=== PATIENT | female | born 1955 | race Caucasian/White ===

== ENCOUNTER 2016-09-23 08:29 | Inpatient (IN) | payer MEDICARE ==
[2016-09-23 09:42] LABS: Hematocrit 44 % (35-47); Mean Corpuscular HGB Conc 34 g/dl (31-36); Mean Corpuscular Hemoglobin 32 pg (27-31); Mean Corpuscular Volume 95 fL (80-97); Mean Platelet Volume 8 um3 (7.4-10.4); Red Blood Count 4.62 10^6/ul (4.0-5.4); Red Cell Distribution Width 13 % (10.5-15); White Blood Count 8.2 10^3/ul (3.5-10.8)
--- NOTE | 2016-09-23 09:46 | RAD ---
INDICATION: Ataxia. COMPARISON: There are no prior studies available for comparison. TECHNIQUE: Contiguous axial sections of the brain were obtained from the skull base to the vertex without contrast. FINDINGS: The ventricles, cisterns and sulci are enlarged consistent with diffuse atrophy. There are multiple focal areas of decreased density in the subcortical and periventricular white matter suggestive of moderate chronic small vessel ischemic changes. There is no evidence for hemorrhage. No significant focal osseous abnormality is seen. There is mild mucosal thickening within the left maxillary sinus. The visualized portion of the paranasal sinuses and mastoid air cells otherwise appear clear. IMPRESSION: 1. NO EVIDENCE FOR GROSS ACUTE INFARCT, MASS EFFECT OR HEMORRHAGE. 2. ATROPHY AND FINDINGS CONSISTENT WITH CHRONIC SMALL VESSEL ISCHEMIC CHANGES.
--- NOTE | 2016-09-23 09:55 | RAD ---
INDICATION: Weakness, ataxia. COMPARISON: None. TECHNIQUE: Multidetector CT images foramen magnum to lung apices without contrast. Multiplanar reformation. REPORT: Calcific plaque at the carotid bifurcations. Negative for paravertebral hematoma or lymphadenopathy within the [id number]. Negative for cervical spine fracture or subluxation. C4-C5: Mild disc space narrowing and vertebral endplate osteophytosis. Negative for central canal stenosis or foraminal stenosis. C5-C6: Severe disc space narrowing. Mild dorsal osteophyte disc complex without resulting central canal stenosis. Uncinate process spurring and facet joint osteoarthritis results in mild bilateral foraminal stenosis. IMPRESSION: 1. No evidence for traumatic injury of the cervical spine. 2. Uncinate process spurring and facet joint osteoarthritis results in mild bilateral foraminal stenosis at C5-C6. 3. Atherosclerotic plaque at the carotid bifurcations. Correlate with clinical assessment and consider ultrasound for further evaluation.
--- NOTE | 2016-09-23 09:56 | RAD ---
Indication: Right leg weakness. CT of the lumbar spine was obtained in the axial plane. Sagittal and coronal reconstructed images were obtained. The vertebral bodies appear normal in height. Normal bone marrow signal is noted. At L5-S1 there is no disc protrusion present. No central or foraminal stenosis is noted. A Schmorl's node is noted in the superior endplate of L5. At L4-L5 there is Broad-based protrusion which flattens the thecal sac. No central or foraminal stenosis is noted. At L3-L4, L2-L3, L1-L2 and T12-L1 no disc protrusion is identified. The spinal canal appears to be intact. Some scarring is noted in the right costophrenic angle of the lung lovelace. No retroperitoneal adenopathy is noted. Atherosclerotic aorta is noted. IMPRESSION: AT L4-L5 BROAD-BASED PROTRUSION FLATTENS THE THECAL SAC WITH NO CENTRAL OR FORAMINAL STENOSIS. A SCHMORL'S NODE IS NOTED IN THE SUPERIOR ENDPLATE OF L5. SPONDYLITIC RIDGE IS NOTED AT L5-S1. NO CENTRAL OR FORAMINAL STENOSIS IS NOTED. NO FRACTURE OF THE LUMBAR SPINE IS NOTED.
[2016-09-23 10:01] LABS: Albumin 4.2 g/dL (3.2-5.2); BUN/Creatinine Ratio 22.8 (8-20); Calcium 9.4 mg/dL (8.6-10.3); EGFR African American 94.5 (>60); EGFR Non-African American 73.5 (>60); Globulin 3.2 g/dL (2-4); Potassium 3.5 mmol/L (3.5-5.0); Total Bilirubin 0.6 mg/dL (0.2-1.0); Total Protein 7.4 g/dL (6.4-8.9)
--- NOTE | 2016-09-23 11:54 | RAD ---
Indication: Leg weakness. Image sequences: Sagittal T1, T2, STIR, axial T1 and T2-weighted images of the lumbar spine were obtained. The vertebral bodies appear normal in height. Normal bone marrow signal is noted. At L5-S1 the disc is preserved in height and signal. No focal protrusion is identified. At L4-L5 disc desiccation with mild facet arthropathy is noted. No central or foraminal stenosis is noted. At L1-L2, L2-L3 and L3-L4 the disc space is normal. IMPRESSION: DISC DESICCATION AT L4-L5. NO FOCAL PROTRUSION IS NOTED AT ANY OF THE LUMBAR SPINE LEVELS.
[2016-09-23] MEDS ORDERED: Aspirin TAB* 325 MG PO ONE (13:26)
[2016-09-23] MEDS: Aspirin EC Low Dose* 81 MG TAB.EC PO SCH (15:31)
--- NOTE | 2016-09-23 16:27 | RAD ---
HISTORY: Right leg numbness COMPARISONS: Head CT dated September 23, 2016 TECHNIQUE: The following sequences were obtained of the head: Sagittal T1-weighted images, axial T2-weighted images, axial FLAIR images, axial susceptibility weighted images, axial T1-weighted images. Additionally, axial diffusion-weighted images were obtained with calculated apparent diffusion coefficients. FINDINGS: HEMORRHAGE/INFARCT: There is a small focus of restricted diffusion within the left insular periventricular white matter measuring 1 cm in size. There is no associated hemorrhage. Elsewhere, there is no hemorrhage or acute infarct. MASSES/SHIFT: There is no mass or shift. EXTRA-AXIAL SPACES/MENINGES: There are no extra-axial fluid collections. SULCI AND VENTRICLES: The sulci and ventricles are normal in size and position for the patient's stated age. CEREBRUM: There is elevated T2/FLAIR signal within the periventricular and subcortical white matter. There is elevated T2/flair signal corresponding to the area of restricted diffusion within the left insula. BRAINSTEM: There are no focal parenchymal abnormalities. CEREBELLUM: There are no focal parenchymal abnormalities. The cerebellar tonsils are normal in size and position. SELLA: The sella is normal. PINEAL: The pineal region is clear. CP ANGLE/TEMPORAL BONES: The labyrinthine structures are grossly normal. VESSELS: Normal flow-voids are noted within the visualized vertebral vasculature. DIFFUSION ABNORMALITIES: As noted above, there is a small focus of restricted diffusion within the left insular periventricular white matter PARANASAL SINUSES/MASTOIDS: The paranasal sinuses are clear. ORBITS: The orbits are unremarkable. BONES AND SOFT TISSUE: No bone or soft tissue abnormalities are noted. OTHER: None IMPRESSION: 1. SUBACUTE NONHEMORRHAGIC INFARCT OF THE LEFT INSULAR PERIVENTRICULAR WHITE MATTER. 2. ELEVATED T2/FLAIR SIGNAL IN THE PERIVENTRICULAR AND SUBCORTICAL WHITE, NONSPECIFIC BUT SUGGESTIVE OF CHRONIC SMALL VESSEL ISCHEMIA
--- NOTE | 2016-09-23 16:30 | RAD ---
HISTORY: Right leg numbness COMPARISONS: CT dated September 23, 2016 TECHNIQUE: The following sequences were obtained of the cervical spine: Sagittal T1- and T2-weighted images, sagittal STIR images, axial T2 and gradient echo images. FINDINGS: BRAIN AND SPINAL CORD: The visualized spinal cord is normal in caliber, position, and signal intensity. The visualized portion of the brain is unremarkable. The cerebellar tonsils are normal in position. ALIGNMENT: There is straightening of the normal cervical lordosis. The alignment is otherwise normal. VERTEBRAL BODIES: There is multilevel anterolateral marginal osteophyte formation. There are mild Modic type II changes at C5-C6. JOINTS: There is uncovertebral and facet osteoarthritic change MUSCULATURE: Unremarkable INTERVERTEBRAL DISCS: There is diffuse loss of intervertebral disc height and T2 signal throughout the spine. AXIAL IMAGES: C2-C3: There is bilateral facet hypertrophy. There is no significant neural foraminal narrowing or central canal stenosis. C3-C4: There is bilateral uncovertebral facet hypertrophy. There is moderate bilateral neural foraminal narrowing. There is no significant central canal stenosis. C4-C5: There is bilateral uncovertebral and facet hypertrophy. There is severe left and moderate right neural foraminal narrowing. There is mild narrowing of the central canal. C5-C6: There is broad-based disc osteophyte complex with bilateral uncovertebral and facet hypertrophy. There is severe left and moderate to severe right neural foraminal narrowing. There is mild narrowing of the central canal. C6-C7: There is bilateral uncovertebral and facet hypertrophy. There is moderate bilateral neural foraminal narrowing. There is no significant central canal stenosis. C7-T1: There is bilateral facet hypertrophy. There is mild bilateral neural foraminal narrowing. There is no significant central stenosis. SOFT TISSUES: The visualized soft tissues of the neck are unremarkable. OTHER: None. IMPRESSION: 1. DEGENERATIVE DISC DISEASE AND OSTEOARTHRITIS. 2. THERE IS MILD NARROWING OF THE CENTRAL CANAL AT C4-C5 AND C5-C6. 3. THERE IS MULTILEVEL NEURAL FORAMINAL NARROWING DESCRIBED ABOVE.
[2016-09-23 16:54] LABS: Hematocrit 45 % (35-47); Hemoglobin 15.4 g/dl (12.0-16.0); Mean Corpuscular HGB Conc 34 g/dl (31-36); Mean Corpuscular Hemoglobin 32 pg (27-31); Mean Corpuscular Volume 95 fL (80-97); Mean Platelet Volume 8 um3 (7.4-10.4); Red Blood Count 4.78 10^6/ul (4.0-5.4); Red Cell Distribution Width 13 % (10.5-15); White Blood Count 6.6 10^3/ul (3.5-10.8)
[2016-09-23 17:04] LABS: EGFR African American 94.5 (>60); EGFR Non-African American 73.5 (>60)
--- NOTE | 2016-09-23 17:47 | RAD ---
HISTORY: Stroke COMPARISONS: None TECHNIQUE: Multiple transverse and longitudinal ultrasound images were obtained of the carotid and vertebral arteries bilaterally, using grayscale, color Doppler, and spectral Doppler imaging. FINDINGS: Measurement of carotid stenosis is based on flow velocity parameters that correlate the residual internal carotid artery diameter with [place] Symptomatic Carotid Endarterectomy Trial (NASCET)-based stenosis levels. RIGHT: Intima: There is diffuse intimal thickening with more focal atheroma formation at the bifurcation. Velocities: Right internal carotid artery maximum peak systolic velocity: 127 cm/s Right common carotid artery maximum peak systolic velocity: 65 cm/s Right internal carotid artery/common carotid artery ratio: 2.8 Waveforms: There is spectral broadening Right Vertebral: The right vertebral artery flow is antegrade. LEFT: Intima: There is diffuse intimal thickening with more focal atheroma formation at the bifurcation. Velocities: Left internal carotid artery maximum peak systolic velocity: 82 cm/s Left common carotid artery maximum peak systolic velocity: 90 cm/s Left internal carotid artery/common carotid artery ratio: 1 Waveforms: There is no spectral broadening. Left Vertebral: The left vertebral artery flow is antegrade. OTHER FINDINGS: None. IMPRESSION: 1. ATHEROMATOUS DISEASE. 2. ELEVATED PEAK SYSTOLIC VELOCITIES OF THE RIGHT INTERNAL CAROTID ARTERY, CONSISTENT WITH RIGHT INTERNAL CAROTID ARTERY STENOSIS BETWEEN 50% AND 69% BY [facility] CRITERIA. 3. NO HEMODYNAMICALLY SIGNIFICANT STENOSIS OF THE LEFT INTERNAL CAROTID ARTERY BY FLOW VELOCITY MEASUREMENTS. THIS CORRESPONDS TO A LUMINAL DIAMETER OF LESS THAN 50% STENOSIS BY [facility]CET CRITERIA. CPT II Codes: 3100F
--- NOTE | 2016-09-23 17:55 | CONS ---
NEUROLOGY CONSULTATION: DATE OF CONSULT: 09/23/16 She is in the emergency room to be admitted. REFERRING PHYSICIAN: Dr. Lyle Fay. PRIMARY CARE PROVIDER: Dr. Caldwell CHIEF COMPLAINT: Right leg weakness. HISTORY OF PRESENT ILLNESS: Lexii Solano is a 61-year-old right handed woman who is accompanied by her daughter who provides meaningful history. Approximately, 2 weeks ago, in a library she noted that her right leg was weak when she tried to get up to walk. She did not seek medical attention at that time. Her daughter thinks it might have improved a little bit, so she did not force the issue. However, about a week ago, it seemed to get quite a bit worse. She had difficulty walking ever since. She feels that her right leg drags but has not noticed any problems in her left side or her right arm. She has had no problems with coming up with words or visual problems or numbness of her face or change in speech. She saw Dr. Caldwell as a new patient consultation in the office today and reported weakness and referred her to emergency room. She denies prior episodes of transient neurological problems. Specifically, no episodes of numbness, visual loss, double vision, or weakness of the limbs. She denies headache or head trauma. She has a history of hypothyroidism and states she takes her medicine every day , but her daughter says that she does not. This is confirmed by her persistently elevated TSH at 50.88 today, it has been elevated since 07/25/15 and it has never come down to normal. She is a ongoing tobacco smoker. She has a history of hepatitis C. There is no history of diabetes, hypertension, or heart disease. MEDICATIONS: Her only medication is Risperdal and she is supposed to be taking Synthroid and says that she does, but her daughter says she does not. Not sure if she is taking the Risperdal either. She does not take aspirin on a regular basis. ALLERGIES: She does not have any drug allergies. FAMILY HISTORY: Noncontributory. REVIEW OF SYSTEMS: Notable for smoking a pack of cigarettes per day. She does not drink alcohol. No headaches, falls, fevers, chills, or change in weight. She denies muscle pain or back pain. No breathing problems or chest pain. PHYSICAL EXAM: She is well nourished and well hydrated. Temperature 97.9, temporally, blood pressure 165/85, heart rate is about 60 and regular. Respirations 16 and oxygen saturation 97% on room air. Her lungs are clear anterolaterally. Heart: Regular rate and rhythm without murmurs. Carotid pulses are present, there are no cervical bruits. Oral mucosa is moist and atraumatic. Neurologic: Pupils react equally from 3.5 to 2 mm. Funduscopic exam reveals sharp discs bilaterally. There is no afferent pupillary defect. Eye movements are choppy but full. Visual lovelace are full to confrontation. Facial musculature appears symmetric. Palate and tongue appear normal, palate rises symmetrically and tongue protrudes in the midline. There is no dysarthria. Facial sensation to light touch and pin are symmetric. Hearing is intact. Neck strength is normal. Motor exam revealed spastic catch in the right leg and possibly slightly in the left. I do not detect any rigidity or abnormal tone in the upper extremities. She has normal strength in the left arm and leg proximally and distally. She has grade 5+ right upper extremity weakness and upper motor neuron pattern and right pronator drift. She has a grade 4 right hip flexor and grade 2 right ankle dorsiflexor weakness. She has normal strength in the left leg. She is diffusely hyperreflexic. She has right Babinski sign and left plantar is flexor. Finger taps are very slow in the right hand, normal on the left. She is alert and oriented, but a suspect historian. Her daughter has to correct historical details and she seemed to have some impairment in memory. Language is generally fluent however. DIAGNOSTIC STUDIES/LAB DATA: Includes a CT of the brain which I reviewed. She has a pretty extensive patchy hypodensities diffusely, particularly in the left subcortical white matter. MRI of the lumbar spine reveals some disk disease, particularly with desiccation at L4-L5 but no significant lumbar stenosis. CT scan of the cervical spine reveals mild degenerative changes but no gross abnormalities otherwise. Other laboratory data is notable for normal chemistry profile, glucose 94. Cholesterol is 211 on 07/25/15 and LDL was 132 on that date. TSH is elevated at 50.88, free T4 low at 0.37. She has positive antithyroglobulin and thyroid peroxidase antibiotics on 08/28/16. She has positive hepatitis C antibody with a hepatitis C quantification of 3800 International Units/mL on 12/06/16. Her hepatitis B antibody was nonreactive. IMPRESSION: Left hemispheric lesion causing right hemiparesis. It is probably vascular, although multiple sclerosis is a possibility as is a intracranial mass. Her main vascular risk factors appeared to be her smoking, but possibly dyslipidemia and possibly hypertension. At least, she is hypertensive during this visit today. I recommend giving her an aspirin 325 mg now. An MRI of the brain is pending and that should be helpful in elucidating the etiology of her hemiparesis and will guide subsequent diagnosis and treatment. I discussed my impression with Dr. Fay. [id number]/[facility] #: [id number] [facility]ITAL[facility]ylon
--- NOTE | 2016-09-23 19:09 | HP ---
HISTORY AND PHYSICAL: DATE OF ADMISSION: 09/23/16 CHIEF COMPLAINT: Right leg not working. HISTORY OF PRESENT ILLNESS: The patient is a 61-year-old woman, who said about 2 weeks ago, she was standing in the library when suddenly she felt her leg became very weak and she could not use it properly. She thought it would get better, she kept walking on it. Apparently, she will be dragging her right foot along. Her daughter thought it got better for a little while, so they did not seek medical attention, but then it seemed to get worse. She denied any other symptoms such as slurred speech, trouble with word finding, facial droop, no blurry vision. She says her right arm is working perfectly fine. It was a sudden occurrence. In the ER, the patient was evaluated and Neurology is concerned about possible cerebrovascular accident. PAST MEDICAL HISTORY: Significant for hypothyroidism. PAST SURGICAL HISTORY: Significant for x1. MEDICATIONS: Her current medications include Synthroid 50 mcg daily. ALLERGIES: She has no known drug allergies. FAMILY HISTORY: Mother at 77 of an [place]. Father at 55 of suicide. SOCIAL HISTORY: She smokes half a pack a day for 20 years. No alcohol or recreational drug use. She does not work. She is on disability. She is , but . She has one daughter, Dyan Gonzalez, who is her healthcare proxy. Her phone number is [phone]. If that number does not work, try her 's number at [phone]. REVIEW OF SYSTEMS: A 14-point review of systems is completed with the patient. All pertinent positives and negatives are in the history of present illness, otherwise is negative. PHYSICAL EXAMINATION GENERAL: Pleasant woman lying in bed, in no acute distress. VITAL SIGNS: Blood pressure 165/85, pulse ox 95%, heart rate 62 beats per minute, temperature 97.5 degrees. HEENT: Normocephalic, atraumatic. Pupils are equal, round, and reactive to light. Moist mucous membranes. NECK: Supple. No JVD, bruits, palpable thyroid, or lymphadenopathy. LUNGS: Clear to auscultation and percussion bilaterally. CARDIOVASCULAR: S1, S2 appreciated. ABDOMEN: Positive bowel sounds in all 4 quadrants. Soft, nontender, and nondistended. EXTREMITIES: No cyanosis, clubbing, or edema. +2 peripheral pulses bilaterally. NEURO: Alert and oriented x3. She has got 5/5 motor strength in her upper extremities and 3/5 motor strength in her right lower extremity. She has poor [id number]-xy-bbjj on her right upper extremity. Good wyrjpv-vy-rfax, left upper extremity. Otherwise, her extremity exam is nonfocal. She also has negative pronator drift. DIAGNOSTIC STUDIES/LAB DATA: White count 8.2, hemoglobin 15.0, hematocrit 44, and platelets 223. Sodium 139, potassium 3.5, chloride 105, CO2 25, BUN 18, creatinine 0.09, glucose is 94. Brain CT was interpreted by Radiology as no evidence for gross acute infarct, mass effect, or hemorrhage. Atrophy, findings consistent with chronic small vessel ischemic changes. Lumbar spine CT: At L4-L5, broad-based protrusion flattening the thecal sac with no central or foraminal stenosis. A Schmorl was noted in the superior endplate of L5, spondylotic ridge is noted at L5-S1. No central or foraminal stenosis is noted. No fracture of the lumbar spine is noted. Cervical spine CT: No evidence for traumatic injury of the cervical spine, uncinate process spurring, and facet joint osteoarthritis results in mild bilateral foraminal stenosis at C5-C6, atherosclerotic plaque at the carotid bifurcations, correlate with clinical assessment and consider ultrasound for further evaluation. Lumbar spine MRI: Disk desiccation at L4-L5. No focal protrusion is noted in any lumbar spine levels. ASSESSMENT AND PLAN: 1. Possible cerebrovascular accident. She definitely has right side hemiplegia. MRI of brain ordered. Start the patient on aspirin 81 mg a day, check lipid profile. Order transthoracic echocardiogram with bubble study, appreciate Neuro's input. Neurological checks q.4 hours. Physical therapy and occupational therapy also ordered. 2. Tobacco abuse. The patient declines need for nicotine replacement at this time. 3. Hypothyroidism. TSH was over 50 on 08/28/16. She says she has now been complaint. Continue Synthroid 50 mcg daily. She will be checked again in a few weeks by her PCP. 4. FEN. N.p.o. Awaiting swallow evaluation. 5. DVT prophylaxis. Heparin subcu. 6. The patient is a full code. TIME SPENT: Over 75 minutes was spent on this H and P, more than 40 minutes of which was spent in direct [id number] contact with the patient in evaluation, physical exam, counseling, and coordination of care. CC: Dr. Caldwell; Dr. Hoyt * [id number]/[facility] #: [id number] [facility]ENTER[facility]ylon
[2016-09-23] MEDS: Heparin VIAL(*) 5000 UNITS/ML VIAL (FIVE THOUSAND) SUBCUT SCH (20:58)
[2016-09-24 04:48] LABS: HDL Cholesterol 41.7 mg/dL
[2016-09-24] MEDS: Levothyroxine TAB* 50 MCG TAB PO SCH (05:46)
[2016-09-24] MEDS: Heparin VIAL(*) 5000 UNITS/ML VIAL (FIVE THOUSAND) SUBCUT SCH ×3 (05:46→21:11)
[2016-09-24] MEDS: Aspirin EC Low Dose* 81 MG TAB.EC PO SCH (07:56)
--- NOTE | 2016-09-24 13:59 | ECHO ---
Patient: PRAKASH BRYSON [facility] Rec#: [id number] : 1955 Date: 09/24/2016 Age: 61y Height: 167.64 cm / 66.0 in Weight: 61.23 kg / 135.0 lbs Sex: F BSA: 1.69 Room#: 431 Admit Date#: 09/23/2016 Type: Inpatient Referring: Suhail Shannon MD Reading: Alondra Klein MD Psychiatric Secretary: Daija Lucero,RDCS,RDMS CC: Javi ROMAN,Samason Transthoracic Echocardiogram Indication: CVA BP: 159/87 HR: 61 Rhythm: NSR Indications Cerebrovascular Disease Findings History: Hypothyroid Technical Comments: The study quality is good. Completed 1010. Left Ventricle: The left ventricular chamber size is normal. Mild concentric left ventricular hypertrophy is observed. Global left ventricular wall motion and contractility are within normal limits. The estimated ejection fraction is 55-60%. Abnormal left ventricular diastolic filling is observed, consistent with impaired relaxation. Left Atrium: The left atrial chamber size is normal. Right Ventricle: The right ventricular chamber size and systolic function are within normal limits. The right ventricle wall thickness is mildly increased. Right Atrium: The right atrial cavity size is normal. A patent foramen ovale is demonstrated by agitated contrast. There is evidence of an atrial septal aneurysm. Aortic Valve: The aortic valve is trileaflet. There is no evidence of aortic regurgitation. There is no evidence of aortic stenosis. Mitral Valve: The mitral valve leaflets are mildly thickened. There is no evidence of mitral regurgitation. There is no evidence of mitral stenosis. Tricuspid Valve: The tricuspid valve leaflets are normal. There is mild to moderate tricuspid regurgitation. The tricuspid regurgitant jet is centrally directed. No pulmonary hypertension is noted. Pulmonic Valve: There is no evidence of pulmonic valve thickening. There is no evidence of pulmonic regurgitation. Pericardium: There is no significant pericardial effusion. Aorta: The aortic root appears normal. There is no dilatation of the aortic arch. Pulmonary Artery: The main pulmonary artery appears normal. Venous: The inferior vena cava appears normal in size. There is a greater than 50% respiratory change in the inferior vena cava dimension. Contrast: Intravenous agitated saline contrast was used to assess intracardiac shunting. Conclusions Mild concentric left ventricular hypertrophy is observed and left ventricular wall motion and contractility are within normal limits. The estimated ejection fraction is 55-60%. Abnormal left ventricular diastolic filling is observed, consistent with impaired relaxation. The right ventricle wall thickness is mildly increased and systolic function is within normal limits. A patent foramen ovale is demonstrated by agitated contrast, rapid crossing of bubbles after valsalva. There is mild to moderate tricuspid regurgitation, eccentric centrally directed jet. No prior echo to compare. Measurements Name Value Normal Range RVIDd (AP) 2D 2.7 cm (0.9 - 2.6) RVDdMajor (2D) 2.3 cm (2.2 - 4.4) RAd ISD 4CH 4.9 cm (3.4 - 4.9) RA (A4C)W 3.2 cm (2.9 - 4.6) IVSd (2D) 1.2 cm (0.6 - 1) LVPWd (2D) 1.3 cm (0.6 - 1) LVIDd (2D) 3.6 cm (3.6 - 5.4) LVIDs (2D) 1.9 cm - LV FS (2D) 46 % (25 - 45) Aortic Annulus 2 cm (1.4 - 2.6) Ao root diameter (2D) 3.2 cm (2.1 - 3.5) Ascending Ao 3 cm (2.1 - 3.4) Aortic arch 2.9 cm (1.8 - 3.4) LA dimension (AP) 2D 3.1 cm (2.3 - 3.8) LAd ISD 4CH 4.4 cm (2.9 - 5.3) LA ISD 4CH W 3.7 cm (2.5 - 4.5) Name Value Normal Range LA ESV SP 4CH (A/L) 29.09 ml - LA ESV SP 2CH (A/L) 39.18 ml - LA ESV BP (A/L) 34.51 ml - LA ESV BP (A/L) index 20.4 ml/m2 - LA ESV SP 4CH (MOD) 25.82 ml - LA ESV SP 2CH (MOD) 35.55 ml - Name Value Normal Range MV E-wave Vmax 0.4 m/sec - MV deceleration time 372 msec - MV A-wave Vmax 0.7 m/sec - MV E:A ratio 0.6 ratio - P. vein S-wave Vmax 0.6 m/sec - P. vein D-wave Vmax 0.4 m/sec - P. vein A-wave duration 93.4 msec - LV septal e' Vmax 0.04 m/sec - LV lateral e' Vmax 0.05 m/sec - LV E:e' septal ratio 10 ratio - LV E:e' lateral ratio 8 ratio - Name Value Normal Range AV Vmax 1 m/sec - AV VTI 17 cm - AV peak gradient 4 mmHg - AV mean gradient 1.8 mmHg - LVOT Vmax 0.8 m/sec - LVOT VTI 13.8 cm - LVOT peak gradient 2.6 mmHg - LVOT mean gradient 1.3 mmHg - CELENA Vmax 0.5 m/sec - Name Value Normal Range TR Vmax 2 m/sec - TR peak gradient 16 mmHg - RAP 3 mmHg - RVSP 19 mmHg - IVC diameter 1.1 cm - Name Value Normal Range PV Vmax 0.6 m/sec - PV peak gradient 1.4 mmHg -
--- NOTE | 2016-09-24 14:52 | ED ---
Carleen Quiñones Matthew, scribed for Lyle Fay MD on 09/23/16 at 0857 . Lower Extremity - HPI Summary HPI Summary: A 61 y/o female presents to the ED with gradually worsening right leg weakness since two weeks ago. She was seen by her PCP this morning, who recommended she presented to the ED. The patient denies any other pain or weakness elsewhere. She is able to ambulate, but drags her right foot. - History of Current Complaint Chief Complaint: EDExtremityLower Stated Complaint: RT LEG WEAKNESS Time Seen by Provider: 09/23/16 08:38 Hx Obtained From: Patient Severity Initially: Mild Severity Currently: Moderate Pain Intensity: 0 Pain Scale Used: 0-10 Numeric Timing: Constant - Allergies/Home Medications Allergies/Adverse Reactions: Allergies Allergy/AdvReac Type Severity Reaction Status Date / Time No Known Allergies Allergy Verified 09/23/16 08:34 PMH/Surg Hx/FS Hx/Imm Hx Endocrine/Hematology History: Reports: Hx Thyroid Disease Psychiatric History: Reports: Other Psychiatric Issues/Disorders - schizoaffective disorder Infectious Disease History: No Infectious Disease History: Reports: Hx Hepatitis - C Denies: Traveled Outside the [place] in Last 30 Days - Family History Known Family History: Positive: Diabetes - Mother - Social History Alcohol Use: None Substance Use Type: Reports: Prescribed Smoking Status (MU): Former Smoker Review of Systems Constitutional: Negative Eyes: Negative ENT: Negative Cardiovascular: Negative Respiratory: Negative Gastrointestinal: Negative Genitourinary: Negative Musculoskeletal: Negative Negative: Myalgia Skin: Negative Positive: Weakness - RT leg Psychological: Normal All Other Systems Reviewed And Are Negative: Yes Physical Exam Triage Information Reviewed: Yes Vital Signs On Initial Exam: Initial Vitals Temp Pulse Resp BP Pulse Ox 97.9 F 68 17 154/86 97 09/23/16 08:32 09/23/16 08:32 09/23/16 08:32 09/23/16 08:32 09/23/16 08:32 Vital Signs Reviewed: Yes Appearance: Positive: Well-Appearing, No Pain Distress Skin: Positive: Warm, Dry Head/Face: Positive: Normal Head/Face Inspection Eyes: Positive: EOMI, GERA ENT: Positive: Normal ENT inspection Neck: Positive: Supple, Nontender Respiratory/Lung Sounds: Positive: Clear to Auscultation, Breath Sounds Present Cardiovascular: Positive: RRR Abdomen Description: Positive: Nontender, Soft Bowel Sounds: Positive: Present Musculoskeletal: Positive: Other - THE PATIENT IS WEAK TO HIP FLEXION, DORSIFLEXION OF HER RIGHT FOOT, AND EXTENSION AT THE KNEE; Reflexes are intact Neurological: Positive: Alert, Oriented to Person Place, Time, Finger to Nose - Dysmetria RUE Psychiatric: Positive: Affect/Mood Appropriate Diagnostics - Vital Signs Vital Signs Temp Pulse Resp BP Pulse Ox 09/23/16 08:32 97.9 F 68 17 154/86 97 - Laboratory Lab Results: Lab Results 09/23/16 09/23/16 Range/Units 09:34 09:34 WBC 8.2 (3.5-10.8) 10^3/ul RBC 4.62 (4.0-5.4) 10^6/ul Hgb 15.0 (12.0-16.0) g/dl Hct 44 (35-47) % MCV 95 (80-97) fL MCH 32 H (27-31) pg MCHC 34 (31-36) g/dl RDW 13 (10.5-15) % Plt Count 223 (150-450) 10^3/ul MPV 8 (7.4-10.4) um3 Neut % (Auto) 68.4 (38-83) % Lymph % (Auto) 24.2 L (25-47) % [place] % (Auto) 5.2 (1-9) % Eos % (Auto) 1.0 (0-6) % Baso % (Auto) 1.2 (0-2) % Absolute Neuts (auto) 5.6 (1.5-7.7) 10^3/ul Absolute Lymphs (auto) 2.0 (1.0-4.8) 10^3/ul Absolute Monos (auto) 0.4 (0-0.8) 10^3/ul Absolute Eos (auto) 0.1 (0-0.6) 10^3/ul Absolute Basos (auto) 0.1 (0-0.2) 10^3/ul Absolute Nucleated RBC 0 10^3/ul Nucleated RBC % 0 Sodium 139 (133-145) mmol/L Potassium 3.5 (3.5-5.0) mmol/L Chloride 105 (101-111) mmol/L Carbon Dioxide 25 (22-32) mmol/L Anion Gap 9 (2-11) mmol/L BUN 18 (6-24) mg/dL Creatinine 0.79 (0.51-0.95) mg/dL Est GFR ( Amer) 94.5 (>60) Est GFR (Non-Af Amer) 73.5 (>60) BUN/Creatinine Ratio 22.8 H (8-20) Glucose 94 (70-100) mg/dL Calcium 9.4 (8.6-10.3) mg/dL Total Bilirubin 0.60 (0.2-1.0) mg/dL AST 18 (13-39) U/L ALT 15 (7-52) U/L Alkaline Phosphatase 49 (34-104) U/L Troponin I 0.00 (<0.04) ng/mL Total Protein 7.4 (6.4-8.9) g/dL Albumin 4.2 (3.2-5.2) g/dL Globulin 3.2 (2-4) g/dL Albumin/Globulin Ratio 1.3 (1-3) Result Diagrams: 09/23/16 16:33 09/23/16 16:33 Lab Statement: Any lab studies that have been ordered have been reviewed, and results considered in the medical decision making process. - CT Brain CT CT Interpretation: No Acute Changes - IMPRESSION: 1. NO EVIDENCE FOR GROSS ACUTE INFARCT, MASS EFFECT OR HEMORRHAGE. 2. ATROPHY AND FINDINGS CONSISTENT WITH CHRONIC SMALL VESSEL ISCHEMIC CHANGES. CT Interpretation Completed By: Radiologist L-Spine CT CT Interpretation: Positive (See Comments) - IMPRESSION: AT L4-L5 BROAD-BASED PROTRUSION FLATTENS THE THECAL SAC WITH NO CENTRAL OR FORAMINAL STENOSIS. A SCHMORL'S NODE IS NOTED IN THE SUPERIOR ENDPLATE OF L5. SPONDYLITIC RIDGE IS NOTED AT L5-S1. NO CENTRAL OR FORAMINAL STENOSIS IS NOTED. NO FRACTURE OF THE LUMBAR SPINE IS NOTED. CT Interpretation Completed By: Radiologist C-Spine CT CT Interpretation: Positive (See Comments) - IMPRESSION: 1. No evidence for traumatic injury of the cervical spine. 2. Uncinate process spurring and facet joint osteoarthritis results in mild bilateral foraminal stenosis at C5-C6. 3. Atherosclerotic plaque at the carotid bifurcations. Correlate with clinical assessment and consider ultrasound for further evaluation. CT Interpretation Completed By: Radiologist MRI CT Interpretation: Positive (See Comments) - IMPRESSION: DISC DESICCATION AT L4 -L5. NO FOCAL PROTRUSION IS NOTED AT ANY OF THE LUMBAR SPINE LEVELS. CT Interpretation Completed By: Radiologist Lower Extremity Course/Dx - Course Course Of Treatment: Ms. Solano presented with right leg weakness for at least a week. She was clearly weak to hip flexion, knee extension, and foot dorsiflexion. She was also found to have dysmetria of her right arm and perhaps a mild pronator drift. MRI was obtained after discussion with Dr. Hoyt and she was admitted to the hospital. - Diagnoses Provider Diagnoses: CVA (cerebral vascular accident) - Physician Notifications Discussed Care of Patient With: Dr. Hoyt (Neuro) at 11:31 -- Notified of patient's history and recommends MRI of C-Spine and Brain. Dr. Shannon ( Hospitalist) at 13:35 -- Notified of patient's history and will admit the patient into his services. Discharge - Discharge Plan Condition: Stable Disposition: ADMITTED TO [facility] The documentation as recorded by the Carleen hudson Matthew accurately reflects the service I personally performed and the decisions made by me, Lyle Fay MD.
--- NOTE | 2016-09-24 15:23 | PN ---
Subjective Date of Service: 09/24/16 Interval History: Pt is feeling ok. She states she feels the same as when she came in. She thinks she was getting around ok prior to coming in to the hospital. She denies any pain. No SOB. Objective Active Medications: Aspirin (Aspirin Ec Low Dose*) 81 mg PO DAILY [facility] Last Admin: 09/24/16 07:56 Dose: 81 mg Atorvastatin Calcium (Lipitor*) 40 mg PO 2100 [facility] Heparin Sodium (Porcine) (Heparin Vial(*)) 5,000 units SUBCUT Q8HR [facility] Last Admin: 09/24/16 13:53 Dose: 5,000 units Levothyroxine Sodium (Synthroid Tab*) 50 mcg PO 0600 [facility] Last Admin: 09/24/16 05:46 Dose: 50 mcg Vital Signs 09/23/16 09/23/16 09/23/16 16:22 16:42 19:51 Temperature 98.2 F 98.4 F Pulse Rate 85 65 Respiratory 20 20 18 Rate Blood Pressure 149/94 147/75 (mmHg) O2 Sat by Pulse 95 93 Oximetry 09/23/16 09/24/16 09/24/16 20:00 00:01 03:57 Temperature 97.6 F 98.7 F Pulse Rate 66 77 Respiratory 18 20 20 Rate Blood Pressure 126/88 159/87 (mmHg) O2 Sat by Pulse 97 97 Oximetry 09/24/16 09/24/16 09/24/16 07:37 07:40 11:03 Temperature 97.5 F 98.0 F Pulse Rate 59 60 Respiratory 16 15 18 Rate Blood Pressure 141/80 165/87 (mmHg) O2 Sat by Pulse 96 96 Oximetry 09/24/16 09/24/16 11:38 13:59 Temperature 97.2 F Pulse Rate 64 Respiratory 15 16 Rate Blood Pressure 154/82 137/78 (mmHg) O2 Sat by Pulse 94 Oximetry Oxygen Devices in Use Now: None Appearance: Middle aged female sitting up in bed, NAD Eyes: No Scleral Icterus Ears/Nose/Mouth/Throat: Mucous Membranes Moist Respiratory: Symmetrical Chest Expansion and Respiratory Effort, Clear to Auscultation Cardiovascular: NL Sounds; No Murmurs; No JVD, RRR, No Edema Abdominal: NL Sounds; No Tenderness; No Distention Extremities: No Clubbing, Cyanosis Skin: No Rash or Ulcers, No Nodules or Sclerosis Neurological: Alert and Oriented x 3 Result Diagrams: 09/23/16 16:33 09/23/16 16:33 Additional Lab and Data: Lab Results 09/23/16 09/23/16 Range/Units 09:34 09:34 WBC 8.2 (3.5-10.8) 10^3/ul RBC 4.62 (4.0-5.4) 10^6/ul Hgb 15.0 (12.0-16.0) g/dl Hct 44 (35-47) % MCV 95 (80-97) fL MCH 32 H (27-31) pg MCHC 34 (31-36) g/dl RDW 13 (10.5-15) % Plt Count 223 (150-450) 10^3/ul MPV 8 (7.4-10.4) um3 Neut % (Auto) 68.4 (38-83) % Lymph % (Auto) 24.2 L (25-47) % [place] % (Auto) 5.2 (1-9) % Eos % (Auto) 1.0 (0-6) % Baso % (Auto) 1.2 (0-2) % Absolute Neuts (auto) 5.6 (1.5-7.7) 10^3/ul Absolute Lymphs (auto) 2.0 (1.0-4.8) 10^3/ul Absolute Monos (auto) 0.4 (0-0.8) 10^3/ul Absolute Eos (auto) 0.1 (0-0.6) 10^3/ul Absolute Basos (auto) 0.1 (0-0.2) 10^3/ul Absolute Nucleated RBC 0 10^3/ul Nucleated RBC % 0 Sodium 139 (133-145) mmol/L Potassium 3.5 (3.5-5.0) mmol/L Chloride 105 (101-111) mmol/L Carbon Dioxide 25 (22-32) mmol/L Anion Gap 9 (2-11) mmol/L BUN 18 (6-24) mg/dL Creatinine 0.79 (0.51-0.95) mg/dL Est GFR ( Amer) 94.5 (>60) Est GFR (Non-Af Amer) 73.5 (>60) BUN/Creatinine Ratio 22.8 H (8-20) Glucose 94 (70-100) mg/dL Calcium 9.4 (8.6-10.3) mg/dL Total Bilirubin 0.60 (0.2-1.0) mg/dL AST 18 (13-39) U/L ALT 15 (7-52) U/L Alkaline Phosphatase 49 (34-104) U/L Troponin I 0.00 (<0.04) ng/mL Total Protein 7.4 (6.4-8.9) g/dL Albumin 4.2 (3.2-5.2) g/dL Globulin 3.2 (2-4) g/dL Albumin/Globulin Ratio 1.3 (1-3) Assess/Plan/Problems-Billing Ms Solano is a 61 yo F with a h/o hypothyroidism and tobacco abuse who presented to the ER with c/o R leg weakness and was admitted for evaluation of probable CVA. - Patient Problems (1) CVA (cerebral vascular accident) Current Visit: Yes Status: Acute Code(s): I63.9 - CEREBRAL INFARCTION, UNSPECIFIED SNOMED Code(s): 559099888 Comment: The patient's MRI showed a subacute infarct in the L insular periventricular white matter. This is likely consistent with the onset of symtpoms 2 weeks ago. Her lipids are elevated and she will be started on lipitor 40mg qHS. She will also continue on ASA 81mg daily. Her Echo showed a PFO therefore will get dopplers of the LE to r/o DVT but this seems an unlikely cause of her CVA. Will encourage smoking cessation. She will need PT but unclear if PMRU vs DESHAWN vs home with PT is the most appropriate place for her. (2) Hypothyroidism Current Visit: Yes Status: Acute Code(s): E03.9 - HYPOTHYROIDISM, UNSPECIFIED SNOMED Code(s): 89577911 Comment: The patient states she takes her medications but her daughter states she does not. Continue home dose of synthroid for now-would recheck in about 2 weeks to see if her TSH is improving at all. (3) DVT prophylaxis Current Visit: Yes Status: Acute Code(s): CHY2944 - SNOMED Code(s): 950779755 Comment: SQ heparin (4) Full code status Current Visit: Yes Status: Acute Code(s): Z78.9 - OTHER SPECIFIED HEALTH STATUS SNOMED Code(s): 636224904
--- NOTE | 2016-09-24 16:19 | RAD ---
INDICATION: Inpatient evaluate for deep venous thrombosis. COMPARISON: There are no prior studies available for comparison. TECHNIQUE: Multiple real-time, color flow and Doppler tracings of both lower extremities were obtained. FINDINGS: The common femoral, femoral, profunda femoral and popliteal veins all demonstrate normal compressibility, augmentation with compression and phasic response with respiration. The posterior tibial and peroneal veins demonstrate normal compressibility and augmentation with compression. IMPRESSION: NO EVIDENCE FOR DEEP VENOUS THROMBOSIS.
[2016-09-24] MEDS: Atorvastatin* 40 MG TAB PO SCH (21:11)
[2016-09-25] MEDS: Heparin VIAL(*) 5000 UNITS/ML VIAL (FIVE THOUSAND) SUBCUT SCH ×3 (05:10→20:36)
[2016-09-25] MEDS: Levothyroxine TAB* 50 MCG TAB PO SCH (05:11)
[2016-09-25] MEDS: Aspirin EC Low Dose* 81 MG TAB.EC PO SCH (09:51)
--- NOTE | 2016-09-25 10:33 | PN ---
Subjective Date of Service: 09/25/16 Interval History: Pt is feeling well. She understands STR has been recommended and she is agreeable. She denies any pain or SOB. Objective Active Medications: Aspirin (Aspirin Ec Low Dose*) 81 mg PO DAILY [facility] Last Admin: 09/25/16 09:51 Dose: 81 mg Atorvastatin Calcium (Lipitor*) 40 mg PO 2100 [facility] Last Admin: 09/24/16 21:11 Dose: 40 mg Heparin Sodium (Porcine) (Heparin Vial(*)) 5,000 units SUBCUT Q8HR [facility] Last Admin: 09/25/16 05:10 Dose: 5,000 units Levothyroxine Sodium (Synthroid Tab*) 50 mcg PO 0600 [facility] Last Admin: 09/25/16 05:11 Dose: 50 mcg Vital Signs 09/24/16 09/24/16 09/24/16 11:03 11:38 13:59 Temperature 98.0 F 97.2 F Pulse Rate 60 64 Respiratory 18 15 16 Rate Blood Pressure 165/87 154/82 137/78 (mmHg) O2 Sat by Pulse 96 94 Oximetry 09/24/16 09/24/16 09/24/16 15:20 19:44 19:51 Temperature 98.2 F 98.3 F Pulse Rate 57 63 Respiratory 18 16 18 Rate Blood Pressure 150/88 119/72 (mmHg) O2 Sat by Pulse 98 94 Oximetry 09/24/16 09/25/16 09/25/16 23:08 03:30 07:47 Temperature 98.1 F 97.6 F 97.7 F Pulse Rate 57 64 69 Respiratory 20 20 16 Rate Blood Pressure 123/80 133/81 122/84 (mmHg) O2 Sat by Pulse 95 95 94 Oximetry Oxygen Devices in Use Now: None Appearance: Middle aged female lying in bed, NAD Eyes: No Scleral Icterus Ears/Nose/Mouth/Throat: Mucous Membranes Moist Respiratory: Symmetrical Chest Expansion and Respiratory Effort, Clear to Auscultation Cardiovascular: NL Sounds; No Murmurs; No JVD, RRR, No Edema Abdominal: NL Sounds; No Tenderness; No Distention Extremities: No Clubbing, Cyanosis Skin: No Rash or Ulcers, No Nodules or Sclerosis Neurological: Alert and Oriented x 3 Result Diagrams: 09/23/16 16:33 09/23/16 16:33 Additional Lab and Data: Lab Results 09/23/16 09/23/16 Range/Units 09:34 09:34 WBC 8.2 (3.5-10.8) 10^3/ul RBC 4.62 (4.0-5.4) 10^6/ul Hgb 15.0 (12.0-16.0) g/dl Hct 44 (35-47) % MCV 95 (80-97) fL MCH 32 H (27-31) pg MCHC 34 (31-36) g/dl RDW 13 (10.5-15) % Plt Count 223 (150-450) 10^3/ul MPV 8 (7.4-10.4) um3 Neut % (Auto) 68.4 (38-83) % Lymph % (Auto) 24.2 L (25-47) % [place] % (Auto) 5.2 (1-9) % Eos % (Auto) 1.0 (0-6) % Baso % (Auto) 1.2 (0-2) % Absolute Neuts (auto) 5.6 (1.5-7.7) 10^3/ul Absolute Lymphs (auto) 2.0 (1.0-4.8) 10^3/ul Absolute Monos (auto) 0.4 (0-0.8) 10^3/ul Absolute Eos (auto) 0.1 (0-0.6) 10^3/ul Absolute Basos (auto) 0.1 (0-0.2) 10^3/ul Absolute Nucleated RBC 0 10^3/ul Nucleated RBC % 0 Sodium 139 (133-145) mmol/L Potassium 3.5 (3.5-5.0) mmol/L Chloride 105 (101-111) mmol/L Carbon Dioxide 25 (22-32) mmol/L Anion Gap 9 (2-11) mmol/L BUN 18 (6-24) mg/dL Creatinine 0.79 (0.51-0.95) mg/dL Est GFR ( Amer) 94.5 (>60) Est GFR (Non-Af Amer) 73.5 (>60) BUN/Creatinine Ratio 22.8 H (8-20) Glucose 94 (70-100) mg/dL Calcium 9.4 (8.6-10.3) mg/dL Total Bilirubin 0.60 (0.2-1.0) mg/dL AST 18 (13-39) U/L ALT 15 (7-52) U/L Alkaline Phosphatase 49 (34-104) U/L Troponin I 0.00 (<0.04) ng/mL Total Protein 7.4 (6.4-8.9) g/dL Albumin 4.2 (3.2-5.2) g/dL Globulin 3.2 (2-4) g/dL Albumin/Globulin Ratio 1.3 (1-3) Assess/Plan/Problems-Billing Ms Solano is a 61 yo F with a h/o hypothyroidism and tobacco abuse who presented to the ER with c/o R leg weakness and was admitted for evaluation of probable CVA. - Patient Problems (1) CVA (cerebral vascular accident) Current Visit: Yes Status: Acute Code(s): I63.9 - CEREBRAL INFARCTION, UNSPECIFIED SNOMED Code(s): 524534953 Comment: The patient's MRI showed a subacute infarct in the L insular periventricular white matter. This is likely consistent with the onset of symtpoms 2 weeks ago. Her lipids are elevated and she has been started on lipitor 40mg qHS. She will also continue on ASA 81mg daily. Her Echo showed a PFO but DVT was identified on dopplers. Will encourage smoking cessation. Pt will need STR but ? PMRU vs DESHAWN. (2) Hypothyroidism Current Visit: Yes Status: Acute Code(s): E03.9 - HYPOTHYROIDISM, UNSPECIFIED SNOMED Code(s): 47723965 Comment: The patient states she takes her medications but her daughter states she does not. Continue home dose of synthroid for now-would recheck in about 2 weeks to see if her TSH is improving. (3) DVT prophylaxis Current Visit: Yes Status: Acute Code(s): LUR1052 - SNOMED Code(s): 004994245 Comment: SQ heparin (4) Full code status Current Visit: Yes Status: Acute Code(s): Z78.9 - OTHER SPECIFIED HEALTH STATUS SNOMED Code(s): 184393150 Status and Disposition: PMRU vs DSEHAWN
[2016-09-25] MEDS: Atorvastatin* 40 MG TAB PO SCH (20:36)
[2016-09-26] MEDS: Levothyroxine TAB* 50 MCG TAB PO SCH (05:36)
[2016-09-26] MEDS: Heparin VIAL(*) 5000 UNITS/ML VIAL (FIVE THOUSAND) SUBCUT SCH (05:36)
[2016-09-26 06:14] LABS: Hematocrit 41 % (35-47); Hemoglobin 13.8 g/dl (12.0-16.0); Mean Corpuscular HGB Conc 34 g/dl (31-36); Mean Corpuscular Hemoglobin 32 pg (27-31); Mean Corpuscular Volume 96 fL (80-97); Mean Platelet Volume 8 um3 (7.4-10.4); Red Blood Count 4.27 10^6/ul (4.0-5.4); Red Cell Distribution Width 13 % (10.5-15); White Blood Count 8.2 10^3/ul (3.5-10.8)
[2016-09-26 07:43] VITALS: BP 164/90
--- NOTE | 2016-09-26 07:52 | PN ---
Subjective Date of Service: 09/26/16 Interval History: Pt is feeling well. She has no pain or SOB. She agrees with the plan to go to [facility] this AM. She does not remember when she had her last BM. Objective Active Medications: Aspirin (Aspirin Ec Low Dose*) 81 mg PO DAILY [facility] Last Admin: 09/25/16 09:51 Dose: 81 mg Atorvastatin Calcium (Lipitor*) 40 mg PO 2100 [facility] [place] Last Admin: 09/25/16 20:36 Dose: 40 mg Heparin Sodium (Porcine) (Heparin Vial(*)) 5,000 units SUBCUT Q8HR [facility] [place] Last Admin: 09/26/16 05:36 Dose: 5,000 units Levothyroxine Sodium (Synthroid Tab*) 50 mcg PO 0600 [facility] [place] Last Admin: 09/26/16 05:36 Dose: 50 mcg Vital Signs 09/25/16 09/25/16 09/25/16 08:00 11:16 13:58 Temperature 97.1 F 98.4 F Pulse Rate 59 61 Respiratory 16 16 16 Rate Blood Pressure 131/79 127/77 (mmHg) O2 Sat by Pulse 97 96 Oximetry 09/25/16 09/25/16 09/25/16 15:31 19:14 19:39 Temperature 98.6 F 98.6 F Pulse Rate 61 68 Respiratory 17 17 16 Rate Blood Pressure 132/84 140/75 (mmHg) O2 Sat by Pulse 94 95 Oximetry 09/25/16 09/26/16 09/26/16 23:32 03:38 07:24 Temperature 97.8 F 97.2 F 97.5 F Pulse Rate 56 58 62 Respiratory 16 16 16 Rate Blood Pressure 157/80 128/79 164/90 (mmHg) O2 Sat by Pulse 95 98 95 Oximetry 09/26/16 07:43 Temperature Pulse Rate Respiratory 16 Rate Blood Pressure (mmHg) O2 Sat by Pulse Oximetry Oxygen Devices in Use Now: None Appearance: Middle aged female lying in bed, NAD Eyes: No Scleral Icterus Ears/Nose/Mouth/Throat: Mucous Membranes Moist Respiratory: Symmetrical Chest Expansion and Respiratory Effort, Clear to Auscultation Cardiovascular: NL Sounds; No Murmurs; No JVD, RRR, No Edema Abdominal: NL Sounds; No Tenderness; No Distention Extremities: No Clubbing, Cyanosis Skin: No Rash or Ulcers, No Nodules or Sclerosis Neurological: Alert and Oriented x 3 Result Diagrams: 09/26/16 05:45 09/23/16 16:33 Additional Lab and Data: Lab Results 09/23/16 09/23/16 Range/Units 09:34 09:34 WBC 8.2 (3.5-10.8) 10^3/ul RBC 4.62 (4.0-5.4) 10^6/ul Hgb 15.0 (12.0-16.0) g/dl Hct 44 (35-47) % MCV 95 (80-97) fL MCH 32 H (27-31) pg MCHC 34 (31-36) g/dl RDW 13 (10.5-15) % Plt Count 223 (150-450) 10^3/ul MPV 8 (7.4-10.4) um3 Neut % (Auto) 68.4 (38-83) % Lymph % (Auto) 24.2 L (25-47) % Henry % (Auto) 5.2 (1-9) % Eos % (Auto) 1.0 (0-6) % Baso % (Auto) 1.2 (0-2) % Absolute Neuts (auto) 5.6 (1.5-7.7) 10^3/ul Absolute Lymphs (auto) 2.0 (1.0-4.8) 10^3/ul Absolute Monos (auto) 0.4 (0-0.8) 10^3/ul Absolute Eos (auto) 0.1 (0-0.6) 10^3/ul Absolute Basos (auto) 0.1 (0-0.2) 10^3/ul Absolute Nucleated RBC 0 10^3/ul Nucleated RBC % 0 Sodium 139 (133-145) mmol/L Potassium 3.5 (3.5-5.0) mmol/L Chloride 105 (101-111) mmol/L Carbon Dioxide 25 (22-32) mmol/L Anion Gap 9 (2-11) mmol/L BUN 18 (6-24) mg/dL Creatinine 0.79 (0.51-0.95) mg/dL Est GFR ( Amer) 94.5 (>60) Est GFR (Non-Af Amer) 73.5 (>60) BUN/Creatinine Ratio 22.8 H (8-20) Glucose 94 (70-100) mg/dL Calcium 9.4 (8.6-10.3) mg/dL Total Bilirubin 0.60 (0.2-1.0) mg/dL AST 18 (13-39) U/L ALT 15 (7-52) U/L Alkaline Phosphatase 49 (34-104) U/L Troponin I 0.00 (<0.04) ng/mL Total Protein 7.4 (6.4-8.9) g/dL Albumin 4.2 (3.2-5.2) g/dL Globulin 3.2 (2-4) g/dL Albumin/Globulin Ratio 1.3 (1-3) Assess/Plan/Problems-Billing Ms Solano is a 61 yo F with a h/o hypothyroidism and tobacco abuse who presented to the ER with c/o R leg weakness and was admitted for evaluation of probable CVA. - Patient Problems (1) CVA (cerebral vascular accident) Current Visit: Yes Status: Acute Code(s): I63.9 - CEREBRAL INFARCTION, UNSPECIFIED SNOMED Code(s): 485076260 Comment: The plan is for the patient to go to [facility] this morning. Continue lipitor and ASA. (2) Hypothyroidism Current Visit: Yes Status: Acute Code(s): E03.9 - HYPOTHYROIDISM, UNSPECIFIED SNOMED Code(s): 26420270 Comment: The patient states she takes her medications but her daughter states she does not. Continue home dose of synthroid for now-would recheck in about 2 weeks to see if her TSH is improving. (3) DVT prophylaxis Current Visit: Yes Status: Acute Code(s): WUX1805 - SNOMED Code(s): 737379751 Comment: SQ heparin (4) Full code status Current Visit: Yes Status: Acute Code(s): Z78.9 - OTHER SPECIFIED HEALTH STATUS SNOMED Code(s): 106602219 Status and Disposition: [facility] today
[2016-09-26] MEDS: Aspirin EC Low Dose* 81 MG TAB.EC PO SCH (09:01)
--- NOTE | 2016-09-26 10:12 | DS ---
DISCHARGE SUMMARY: DATE OF ADMISSION: 09/23/16 DATE OF DISCHARGE: 09/26/16 PRIMARY CARE PROVIDER: Dr. Caldwell PRINCIPAL DIAGNOSIS: Subacute left insular periventricular white matter cerebrovascular accident. SECONDARY DIAGNOSIS: Hypothyroidism - uncontrolled - unclear. The patient is compliant with taking Synthroid. DISCHARGE MEDICATIONS: 1. Aspirin 81 mg p.o. daily (new). 2. Lipitor 40 mg p.o. q.h.s. (new). 3. Levothyroxine 50 mcg p.o. daily. HOSPITAL COURSE: Ms. Solano is a 61-year-old female, who has a history of hypothyroidism, but it is unclear if she is checking this routinely, who presents to the emergency room with complaints of right leg weakness. The patient's symptoms began approximately 2 weeks prior to admission. At that point, she felt that her leg had become very weak and she could not use it properly. She was felt to be dragging her foot. The symptoms got better for a period of time, but then got worse. The patient then presented to the emergency room for evaluation. The patient underwent a CT of the brain, which showed no evidence for gross acute infarct, mass effect, or hemorrhage. Atrophy and findings consistent with chronic small-vessel ischemic changes were noted. She also underwent cervical and lumbar CT, which revealed no evidence for traumatic injury of the cervical spine, an uncinate process spurring and facet joint osteoarthritis resulting in mild bilateral foraminal stenosis at C5- 6 was noted. Atherosclerotic plaque at the carotid bifurcation was also noted. The patient underwent a brain MRI, which revealed subacute nonhemorrhagic infarct of the left insular periventricular white matter. Elevated T2/FLAIR signal in the periventricular and subcortical white matter was also noted, which was suggestive of chronic small-vessel ischemia. The patient in the emergency room also underwent a cervical spine MRI, which revealed degenerative disk disease and osteoarthritis. There was felt to be mild narrowing of the central canal at C4-5 and C5-6 and multilevel narrowing. The lumbar spine MRI revealed disk desiccation at L4-5. The patient was seen in consultation by Dr. Hoyt, who felt the patient's symptoms were most likely secondary to CVA. The patient was admitted for evaluation and treatment of the CVA once this was identified on MRI of the brain. She underwent a transthoracic echocardiogram that revealed mild concentric LVH with an EF of 55% to 60%. Abnormal left ventricular diastolic filing was observed. Right ventricle wall thickness is mildly increased and systolic function was felt to be within normal limits. A patent foramen ovale was demonstrated. The patient also underwent lower extremity Dopplers to rule out DVT once the PFO was identified. These were negative. The patient underwent carotid Dopplers that revealed right internal carotid artery stenosis between 50% to 69%. No hemodynamically significant stenosis of the left internal carotid artery was noted. Overall, the patient did well during the course of her hospitalization. She did not have any dramatic improvement in her symptoms in the few short days that she was inpatient. PT and OT have worked with the patient and have recommended skilled physical therapy and occupational therapy. The patient is going to be discharged to [facility] today, 09/26/16, for continued acute physical therapy and occupational therapy. The patient has been started on aspirin and Lipitor as her lipid profile was unfavorable with an LDL of 209. The patient will need to continue these medications moving forward. In terms of the patient's diagnosis of hypothyroidism, her TSH was noted to be 50.88 on 08/28/16. Her TSH has actually been significantly elevated since at least July 2015, the first time it was checked in this hospital. The patient has been on Synthroid 50 mcg p.o. daily. She states that she is taking this medication routinely; however, her daughter states that she is not. While she is in the hospital, I recommend administering the medication routinely with a followup TSH prior to discharge. If the patient's TSH is improving, this likely indicates that she has been noncompliant with her Synthroid at home. FOLLOWUP CONCERNS: The patient is being discharged to [facility] today, 09/26/16. ACTIVITY LEVEL: As tolerated. DIET: Low-fat. CONDITION ON DISCHARGE: Stable. TIME SPENT: Thirty five minutes was spent discharging this patient. CC: Dr. Caldwell* [id number]/[facility] #: [id number] EMILIANO
== END 2016-09-26 09:28 | DRG 65 ==
LOC: ED 08:29 → MEDTELE 13:52
PROVIDERS: ADMIT Internal Medicine; ATTEND Hospitalist
DX: I63.9 Cerebral infarction, unspecified (principal); Q21.1 Atrial septal defect; G81.91 Hemiplegia, unspecified affecting right dominant side; M46.02 Spinal enthesopathy, cervical region; M47.812 Spondylosis without myelopathy or radiculopathy, cervical region; M48.02 Spinal stenosis, cervical region; I65.21 Occlusion and stenosis of right carotid artery; E03.9 Hypothyroidism, unspecified; F25.9 Schizoaffective disorder, unspecified; F17.210 Nicotine dependence, cigarettes, uncomplicated; M51.36 Other intervertebral disc degeneration, lumbar region; B19.20 Unspecified viral hepatitis C without hepatic coma; M50.31 Other cervical disc degeneration, high cervical region; Z83.3 Family history of diabetes mellitus; Z82.49 Family history of ischemic heart disease and other diseases of the circulatory system; Z79.82 Long term (current) use of aspirin
CPT/HCPCS: 36415; 70450; 70551; 72125; 72131; 72141; 72148; 80053; 80061; 82565; 84484; 84520; 85025; 85610; 85730; 93005; 93306; 93880; 93970; 99406; A9270-GY; J1644

== ENCOUNTER 2016-09-26 07:29 | Inpatient (IN) | payer MEDICARE ==
[2016-09-26] MEDS ORDERED: Acetaminophen TAB* 325 MG PO PRN (12:34)
[2016-09-26] MEDS: Heparin VIAL(*) 5000 UNITS/ML VIAL (FIVE THOUSAND) SUBCUT SCH ×2 (14:07→21:11)
[2016-09-26] MEDS: Atorvastatin* 40 MG TAB PO SCH (16:25)
--- NOTE | 2016-09-26 17:25 | HP ---
ADMISSION HISTORY AND PHYSICAL: DATE OF ADMISSION: 09/26/16 REASON FOR ADMISSION: CVA with right hemiplegia. HISTORY OF PRESENT ILLNESS: Lexii Solano is 61-year-old female. She smokes a half a pack a day of cigarettes. She has a history of hypothyroidism, but it is unclear if she took her medications on a regular basis. She has a history of hepatitis C, but otherwise she is relatively stable from a medical point of view. Apparently 2 weeks before admission, that is to say 2 weeks before September 23 , the patient was walking in a library and noticed her right leg was weak when she tried to get up and walk. She did not seek medical attention at that time. About a week later, the weakness in her right leg seemed to get progressively worse. She noticed her right leg was dragging. She did not have any trouble in her right arm. She did not notice any difficulties with her language abilities. The patient saw Dr. Caldwell, her primary care doctor, on . He referred her to the emergency room because of her right leg weakness. The patient had Neurology evaluation with Dr. Hoyt. She had an MRI of her lumbar spine as well as CAT scans of her brain, cervical spine, and lumbar spine. The MRI of the lumbar spine showed disk desiccation at L4-L5, but no focal protrusion at any of the lumbar spine levels. Dr. Hoyt felt that she had right hemiparesis probably as a result of a stroke. He recommended starting her on aspirin. The patient had an echocardiogram done. The echo revealed that the patient had a patent foramen ovale. She had an MRI of her brain done and this showed a subacute nonhemorrhagic infarct of the left insular periventricular white matter. Carotid Doppler was done. It did show a right internal carotid stenosis of 50% to 60%, but no hemodynamically significant stenosis of the left internal carotid. The patient was started on Lipitor for a high LDL. She was put on a baby aspirin daily for secondary stroke prevention. The patient otherwise was medically stable. She is now being admitted for inpatient rehab so that she might return to independent living. PAST MEDICAL HISTORY: As noted above. In the records, there is some mention that she may have had a psychiatric issue in the past. ALLERGIES: The patient has no known drug allergies. CURRENT MEDICATIONS: Include: 1. Aspirin 81 mg daily. 2. Lipitor 40. 3. Synthroid. 4. Heparin for DVT prophylaxis. SOCIAL HISTORY: She is a half a pack a day smoker. She denies any alcohol use. She lives with her daughter in a two-ling house. She was not working at the time of her stroke. REVIEW OF SYSTEMS: The patient reports no current shortness of breath or chest pain. PHYSICAL EXAMINATION VITAL SIGNS: The patient's temperature is 97.5, blood pressure is 144/69, pulse 57, respirations 16. HEENT: Her extraocular movements are intact. Tongue is midline. NECK: Supple. LUNGS: Sound clear to auscultation bilaterally. HEART: Sounds were regular. S1 and S2 were audible. ABDOMEN: Soft and nontender. EXTREMITIES: Show normal muscle, bulk, and tone. NEUROLOGIC: She was awake, alert, and oriented. Muscle strength was 5/5 on the left side of her body. Right arm was 5/5, right leg dorsiflexion and plantar flexion appeared to be 3/5, quadriceps about 3/5, hip flexion 3/5 to 4/ 5. FUNCTIONAL EXAM: The patient transfers with min assist. ASSESSMENT: Cerebrovascular accident with right hemiparesis. PLAN: Our plan is to integrate her into a comprehensive and therapeutic rehab program with the following goals: 1. Physical Therapy will work with the patient. They are going to work on functional transfer training, ambulation training with a walker. 2. Occupational Therapy will see the patient and work on her activities of daily living, including toileting and toilet transfers. 3. Speech Therapy evaluation. 4. Heparin for DVT prophylaxis. 5. Continue aspirin and Lipitor for secondary stroke prevention. 6. Consider use of SSRIs. 7. Advance directives: The patient is a full code. 8. Continue Synthroid for hypothyroidism. 9. Nicotine replacement therapy as needed. 10. horticultural services supervisor will be closely involved to make sure that any services and equipment the patient requires are in place prior to discharge. 11. Home with appropriate services. ESTIMATED LENGTH OF STAY: 7 to 12 days. [id number]/[facility] #: [id number] MTDD
[2016-09-26] MEDS: Docusate CAP* 100 MG PO SCH (21:13)
[2016-09-27] MEDS: Levothyroxine TAB* 50 MCG TAB PO SCH (05:45)
[2016-09-27] MEDS: Heparin VIAL(*) 5000 UNITS/ML VIAL (FIVE THOUSAND) SUBCUT SCH ×3 (05:45→22:10)
[2016-09-27] MEDS: Docusate CAP* 100 MG PO SCH ×2 (08:19→19:27)
[2016-09-27] MEDS: Aspirin EC Low Dose* 81 MG TAB.EC PO SCH (08:19)
[2016-09-27] MEDS: Atorvastatin* 40 MG TAB PO SCH (16:28)
[2016-09-28] MEDS: Levothyroxine TAB* 50 MCG TAB PO SCH (06:18)
[2016-09-28] MEDS: Heparin VIAL(*) 5000 UNITS/ML VIAL (FIVE THOUSAND) SUBCUT SCH ×3 (06:18→20:54)
[2016-09-28] MEDS: Docusate CAP* 100 MG PO SCH ×2 (08:14→20:55)
[2016-09-28] MEDS: Aspirin EC Low Dose* 81 MG TAB.EC PO SCH (08:14)
[2016-09-28] MEDS: Atorvastatin* 40 MG TAB PO SCH (17:41)
[2016-09-29] MEDS: Levothyroxine TAB* 50 MCG TAB PO SCH (05:40)
[2016-09-29] MEDS: Heparin VIAL(*) 5000 UNITS/ML VIAL (FIVE THOUSAND) SUBCUT SCH ×3 (05:40→21:33)
[2016-09-29 06:43] LABS: Hematocrit 42 % (35-47); Hemoglobin 14.4 g/dl (12.0-16.0); Mean Corpuscular HGB Conc 34 g/dl (31-36); Mean Corpuscular Hemoglobin 32 pg (27-31); Mean Corpuscular Volume 94 fL (80-97); Mean Platelet Volume 8 um3 (7.4-10.4); Red Blood Count 4.44 10^6/ul (4.0-5.4); Red Cell Distribution Width 13 % (10.5-15); White Blood Count 6.4 10^3/ul (3.5-10.8)
[2016-09-29 06:47] LABS: BUN/Creatinine Ratio 24.7 (8-20); Calcium 9.4 mg/dL (8.6-10.3); EGFR African American 103.6 (>60); EGFR Non-African American 80.5 (>60); Globulin 3.1 g/dL (2-4); Potassium 3.6 mmol/L (3.5-5.0); Total Bilirubin 0.6 mg/dL (0.2-1.0); Total Protein 7.1 g/dL (6.4-8.9)
[2016-09-29] MEDS: Docusate CAP* 100 MG PO SCH ×2 (09:19→21:33)
[2016-09-29] MEDS: Aspirin EC Low Dose* 81 MG TAB.EC PO SCH (09:19)
--- NOTE | 2016-09-29 16:52 | PMRUTEAM ---
PMRU: Goals Current Status: Nursing: Current Status Skin Deviations [none] Other Skin Deviation Description [ skin intact none] Physical Therapy: Current Status Bed Mobility Assistance Supervision Transfer Moblility Assistance Supervision,Contact Guard Assist Transfer/Bed Mobility None,Rolling Walker Recommended Devices Ambulation Assistance Contact Guard Assist/Min Assist Ambulation Assistive Devices Rolling Walker Number of Feet Patient 50 feet. Past this, becomes very ataxic Ambulated Stairs Assistance Contact Guard Assist Stairs Recommended Devices Two Rails Number of Stairs 5 Occupational Therapy: Current Status Upper Body Dressing Supervision Lower Body Dressing Supervision Bathing Supervision Toileting Contact Guard Assist Toilet Transfer Contact Guard Assist Shower Transfer Supervision Eating Independent Rec Therapy: Current Status Summary of Assessment and RT assessment complete, pt. is aware of services Clinical Impression and is open to continued leisure visits. Treatment Goals Pt. will engage in leisure activities while on the unit. Treatment Plan Provide RT services and encourage involvement. Meet with pt. daily to build a rapport. Social Work: Current Status Discharge Plan return home with home care svs and family support Potential for Family Training TBD Anticipated Discharge Home Destination Discharge With home care svs and family support Goals: Physical Therapy: Initial Goals Bed Mobility Assistance Independent Transfer Mobility Assistance Independent Transfer/Bed Mobility Rolling Walker Recommended Devices Ambulation Independent Ambulation Recommended Devices Rolling Walker Ambulation Distance 150 Stairs Assistance Independent Stair Recommended Devices Two Rails Number of Stairs 12 Physical Therapy: Updated Goals Transfer/Bed Mobility Rolling Walker Recommended Devices Occupational Therapy: Initial Goals Goals to be Completed in (Days 7-9 ) Upper Body Bathing Routine Independent Lower Body Bathing Routine Modified Independent with Upper Body Dressing Routine Independent Lower Body Dressing Routine Modified Independent with Toilet Hygeine and Clothing Modified Independent with Management Routine Toilet Transfer Routine Modified Independent with Step-In Shower Transfer Modified Independent with Routine Functional Transfers for ADL Modified Independent with Grooming Routine Independent Feeding Routine Independent Speech: Goals Goal 1 Comments N/A evaluation only. Social Work: Goals Discharge Plan return home with home care svs and family support Potential for Family Training TBD Anticipated Discharge Home Destination Discharge With home care svs and family support Care Plan: Care Plan ADL's - Improve/Maintain Start: 09/26/16 10:56 Freq: DAILY Status: Active Target: Activity Type Activity Date Activity User E-Sign Co-Sign Detail Recorded Client Recorded Date Recorded By Document 09/29/16 15:02 [id number] 09/29/16 15:02 [id number] 09/29/16 15:02 [facility] Outcome: ADL's/ADL Transfers UE/LE ADL's with Assist Yes: Mod I ADL Transfers with Assist Yes: Mod I Toileting: Transfers,Clothing Management Yes: Mod I ,Hygeine w/Assist Progression Toward Outcome/Goals Progressing Outcome/Goals Met Pt progressing towards goals. Pt demonstrates decreased dexterity in R hand as opposed to L. Communication-Improve/Maintain Start: 09/26/16 10:56 Freq: DAILY Status: Active Target: Activity Type Activity Date Activity User E-Sign Co-Sign Detail Recorded Client Recorded Date Recorded By Document 09/29/16 08:00 [id number] [id number] 09/29/16 13:50 [id number] 09/29/16 08:00 [facility] Outcome: Communication/Cognitive Status Outcome/Goals Makes Needs Known Effectively Progression Toward Outcomes/Goals Progressing Outcome/Goals Met Comment Speech,language and cognitive- linguistic evaluation completed. Per patient, daughter and this evaluation , the patients deficits are baseline and her daughter assists with finances, medication and time management . DVT Prophylaxis- Improve/Maintain Start: 09/26/16 10:56 Freq: DAILY Status: Active Target: Activity Type Activity Date Activity User E-Sign Co-Sign Detail Recorded Client Recorded Date Recorded By Document 09/29/16 08:00 [id number] 09/29/16 13:50 [id number] 09/29/16 08:00 [facility] Outcome: DVT Prophylaxis Outcome/Goals Remains Free of DVT Complies with DVT Prophylaxis /Treatment TEDS Stockings on Every AM, Off at HS Progression Toward Outcome/Goals Progressing Discharge Planning - Improve/Maintain Start: 09/26/16 10:56 Freq: DAILY Status: Active Target: Activity Type Activity Date Activity User E-Sign Co-Sign Detail Recorded Client Recorded Date Recorded By Document 09/29/16 08:00 [id number] 09/29/16 13:50 [id number] 09/29/16 08:00 [facility] Outcome: Discharge Planning Identify Patient Needs yes Update Patient Family No Outcome/Goals Demonstrates Understanding of Discharge Plan Progression Toward Outcome/Goals Progressing Education-Improve/Maintain Start: 09/26/16 10:56 Freq: DAILY Status: Active Target: Activity Type Activity Date Activity User E-Sign Co-Sign Detail Recorded Client Recorded Date Recorded By Document 09/29/16 08:00 [id number] 09/29/16 13:50 [id number] 09/29/16 08:00 [facility] Outcome: Education Outcome/Goals Demonstrate/ Verbalize Understanding of Written Discharge Instructions Demonstrates Skills Encourage Questions Progression Toward Outcome/Goals Progressing Medication Administration Start: 09/26/16 10:56 Freq: DAILY Status: Active Target: Activity Type Activity Date Activity User E-Sign Co-Sign Detail Recorded Client Recorded Date Recorded By Document 09/29/16 08:00 [id number] 09/29/16 13:50 [id number] 09/29/16 08:00 [facility] Outcome: Medication Administration Assess Patient Knowledge/Teach Med No Education for all Meds Outcome/Goals Family/ Caregiver Administer Medications at Home Progression Towards Outcome/Goals Progressing Is Patient Going Home on Lovenox? No Mobility- Improve/Maintain Start: 09/26/16 10:56 Freq: DAILY Status: Active Target: Activity Type Activity Date Activity User E-Sign Co-Sign Detail Recorded Client Recorded Date Recorded By Document 09/29/16 12:11 [id number] [email or web address] 09/29/16 12:11 [id number] 09/29/16 12:11 [facility] Outcome: Mobility Physical Therapy Evaluation and Yes Treatment Activity OOB with Assistance Yes Device Yes Assistance Yes Patient to be seen 5x/wk for 60-120 min/ Therex day for: Mobility Training Gait Training Balance Outcome/Goals Maintain/ Achieve Baseline Mobility Status Improve Mobility Status Demonstrates Proper Use of Assistive Devices Free from Complications of Immobility Progression Toward Outcome/Goals Progressing Bed Mobility Yes: independent Transfers Yes: independent with rolling walker Gait x ft Yes: independent 150 ' with RW Up/Down Stairs Yes: independet up/down 12 stairs with Bilateral rails Neurological- Improve/Maintain Start: 09/26/16 10:56 Freq: DAILY Status: Active Target: Activity Type Activity Date Activity User E-Sign Co-Sign Detail Recorded Client Recorded Date Recorded By Document 09/29/16 08:00 [id number] 09/29/16 13:50 [id number] 09/29/16 08:00 [facility] Outcome: Neurological Weakness/Aphasia Weakness Right Side Outcome/Goals Maintain/ Achieve Baseline Neurological Status Prevent Avoidable Neurological Decline Demonstrate Knowledge of Prevention/Tx of Neuro Disorders/ Complication Maintain/ Improve Strength/ROM Progression Toward Outcome/Goals Progressing Nutrition/Swallowing- Improve/Maintain Start: 09/26/16 10:56 Freq: DAILY Status: Active Target: Activity Type Activity Date Activity User E-Sign Co-Sign Detail Recorded Client Recorded Date Recorded By Document 09/29/16 08:00 [id number] 09/29/16 13:50 [id number] 09/29/16 08:00 [facility] Outcome: Nutrition/Swallowing Outcome/Goals Demonstrates Adequate Hydration/ Prevents Dehydration Progression Toward Outcome/Goals Progressing Safety- Improve/Maintain Start: 09/26/16 10:56 Freq: DAILY Status: Active Target: Activity Type Activity Date Activity User E-Sign Co-Sign Detail Recorded Client Recorded Date Recorded By Document 09/29/16 08:00 [id number] 09/29/16 13:50 [id number] 09/29/16 08:00 [facility] Outcome: Safety Outcome/Goals Remain Free of Injury or Harm Cooperates with Safety Measures for Least Restrictive Environment Prevent Falls/ Injury Progression Toward Outcome/Goals Progressing Outcome/Goals Met Comment [address], 1 is tamper proof frequent room checks, pt is impulsive and moves quickly Medicine Note: Length of Stay: 10 days Anticipated Discharge Destination: Home Tentative Discharge Date: October 09, 2016 Discharged to: home
[2016-09-29] MEDS: Atorvastatin* 40 MG TAB PO SCH (17:13)
[2016-09-30] MEDS: Levothyroxine TAB* 50 MCG TAB PO SCH (05:31)
[2016-09-30] MEDS: Heparin VIAL(*) 5000 UNITS/ML VIAL (FIVE THOUSAND) SUBCUT SCH ×3 (05:32→21:02)
[2016-09-30] MEDS: Aspirin EC Low Dose* 81 MG TAB.EC PO SCH (09:41)
[2016-09-30] MEDS: Docusate CAP* 100 MG PO SCH ×2 (09:41→21:01)
--- NOTE | 2016-09-30 13:00 | PMRUTEAM ---
PMRU: Goals Current Status: Nursing: Current Status Skin Deviations [none] Other Skin Deviation Description [ skin intact none] Physical Therapy: Current Status Bed Mobility Assistance Supervision Transfer Moblility Assistance Supervision,Contact Guard Assist Transfer/Bed Mobility None,Rolling Walker Recommended Devices Transfer Mobility Comment moves quickly, can be unsteady at times Ambulation Assistance Supervision,Contact Guard Assist Ambulation Assistive Devices Rolling Walker Number of Feet Patient 150' Ambulated Ambulation Comment Applied AFO R le. Pt. more in controll of R le Stairs Assistance Supervision,Contact Guard Assist Stairs Recommended Devices Two Rails Number of Stairs 5 Occupational Therapy: Current Status Upper Body Dressing Supervision Lower Body Dressing Supervision Bathing Supervision Bathing Progress CloseS for safety. Toileting Supervision Toilet Transfer Supervision Shower Transfer Supervision Shower Transfer Progress CloseS for safety Eating Independent Instrumental ADL Pt able to stand at FWW with gait belt to fold laundry. Pt requires closeS-CGA when folding large sheets. Rec Therapy: Current Status Summary of Assessment and RT assessment complete, pt. is aware of services Clinical Impression and is open to continued leisure visits. Treatment Goals Pt. will engage in leisure activities while on the unit. Treatment Plan Provide RT services and encourage involvement. Meet with pt. daily to build a rapport. Social Work: Current Status Discharge Plan return home with home care svs and family support Potential for Family Training pt's daughter is involved and supportive Anticipated Discharge Home Destination Discharge With home care svs and family support Nutrition: Current Status Monitoring Pt eating 50-90% of meals independently. Last BM 5 /6. Receiving appropriate bowel meds (received colace yesterday). No new ed needs identified. Intitial nutrition assessment to follow per protocol. Goals: Physical Therapy: Initial Goals Bed Mobility Assistance Independent Transfer Mobility Assistance Independent Transfer/Bed Mobility Rolling Walker Recommended Devices Ambulation Independent Ambulation Recommended Devices Rolling Walker Ambulation Distance 150 Stairs Assistance Independent Stair Recommended Devices Two Rails Number of Stairs 12 Physical Therapy: Updated Goals Bed Mobility Assistance Independent Transfer Mobility Assistance Independent Transfer/Bed Mobility Rolling Walker Recommended Devices Ambulation Assistance Independent Ambulation Assistive Devices Rolling Walker Ambulation Distance (ft) 150 Stairs Assistance Independent Stairs Recommended Devices Two Rails Number of Stairs 12 Occupational Therapy: Initial Goals Goals to be Completed in (Days 7-9 ) Upper Body Bathing Routine Independent Lower Body Bathing Routine Modified Independent with Upper Body Dressing Routine Independent Lower Body Dressing Routine Modified Independent with Toilet Hygeine and Clothing Modified Independent with Management Routine Toilet Transfer Routine Modified Independent with Step-In Shower Transfer Modified Independent with Routine Functional Transfers for ADL Modified Independent with Grooming Routine Independent Feeding Routine Independent Nutrition: Goals Intervention Goals 1. Intake will remain adequate to maintain stable wt 2. Pt will establish regular bowel pattern without constipation Speech: Goals Goal 1 Comments N/A evaluation only. Social Work: Goals Discharge Plan return home with home care svs and family support Potential for Family Training pt's daughter is involved and supportive Anticipated Discharge Home Destination Discharge With home care svs and family support Care Plan: Care Plan ADL's - Improve/Maintain Start: 09/26/16 10:56 Freq: DAILY Status: Active Target: Activity Type Activity Date Activity User E-Sign Co-Sign Detail Recorded Client Recorded Date Recorded By Document 09/29/16 15:02 [id number] 09/29/16 15:02 [id number] 09/29/16 15:02 PMRU Outcome: ADL's/ADL Transfers UE/LE ADL's with Assist Yes: Mod I ADL Transfers with Assist Yes: Mod I Toileting: Transfers,Clothing Management Yes: Mod I ,Hygeine w/Assist Progression Toward Outcome/Goals Progressing Outcome/Goals Met Pt progressing towards goals. Pt demonstrates decreased dexterity in R hand as opposed to L. Communication-Improve/Maintain Start: 09/26/16 10:56 Freq: DAILY Status: Active Target: Activity Type Activity Date Activity User E-Sign Co-Sign Detail Recorded Client Recorded Date Recorded By Document 09/30/16 04:09 [id number] 09/30/16 04:10 [id number] 09/30/16 04:09 PMRU Outcome: Communication/Cognitive Status Outcome/Goals Makes Needs Known Effectively Progression Toward Outcomes/Goals Progressing DVT Prophylaxis- Improve/Maintain Start: 09/26/16 10:56 Freq: DAILY Status: Active Target: Activity Type Activity Date Activity User E-Sign Co-Sign Detail Recorded Client Recorded Date Recorded By Document 09/30/16 04:09 [id number] 09/30/16 04:10 [id number] 09/30/16 04:09 PMRU Outcome: DVT Prophylaxis Outcome/Goals Remains Free of DVT Complies with DVT Prophylaxis /Treatment TEDS Stockings on Every AM, Off at HS Progression Toward Outcome/Goals Progressing Discharge Planning - Improve/Maintain Start: 09/26/16 10:56 Freq: DAILY Status: Active Target: Activity Type Activity Date Activity User E-Sign Co-Sign Detail Recorded Client Recorded Date Recorded By Document 09/30/16 04:09 [id number] 09/30/16 04:10 [id number] 09/30/16 04:09 PMRU Outcome: Discharge Planning Identify Patient Needs yes Update Patient Family No Outcome/Goals Demonstrates Understanding of Discharge Plan Progression Toward Outcome/Goals Progressing Education-Improve/Maintain Start: 09/26/16 10:56 Freq: DAILY Status: Active Target: Activity Type Activity Date Activity User E-Sign Co-Sign Detail Recorded Client Recorded Date Recorded By Document 09/30/16 04:09 [id number] 09/30/16 04:10 [id number] 09/30/16 04:09 PMRU Outcome: Education Outcome/Goals Demonstrate/ Verbalize Understanding of Written Discharge Instructions Demonstrates Skills Encourage Questions Progression Toward Outcome/Goals Progressing Medication Administration Start: 09/26/16 10:56 Freq: DAILY Status: Active Target: Activity Type Activity Date Activity User E-Sign Co-Sign Detail Recorded Client Recorded Date Recorded By Document 09/30/16 04:09 [id number] 09/30/16 04:10 [id number] 09/30/16 04:09 PMRU Outcome: Medication Administration Assess Patient Knowledge/Teach Med No Education for all Meds Outcome/Goals Family/ Caregiver Administer Medications at Home Progression Towards Outcome/Goals Progressing Is Patient Going Home on Lovenox? No Mobility- Improve/Maintain Start: 09/26/16 10:56 Freq: DAILY Status: Active Target: Activity Type Activity Date Activity User E-Sign Co-Sign Detail Recorded Client Recorded Date Recorded By Document 09/29/16 12:11 [id number] 09/29/16 12:11 [id number] 09/29/16 12:11 PMRU Outcome: Mobility Physical Therapy Evaluation and Yes Treatment Activity OOB with Assistance Yes Device Yes Assistance Yes Patient to be seen 5x/wk for 60-120 min/ Therex day for: Mobility Training Gait Training Balance Outcome/Goals Maintain/ Achieve Baseline Mobility Status Improve Mobility Status Demonstrates Proper Use of Assistive Devices Free from Complications of Immobility Progression Toward Outcome/Goals Progressing Bed Mobility Yes: independent Transfers Yes: independent with rolling walker Gait x ft Yes: independent 150 ' with RW Up/Down Stairs Yes: independet up/down 12 stairs with Bilateral rails Neurological- Improve/Maintain Start: 09/26/16 10:56 Freq: DAILY Status: Active Target: Activity Type Activity Date Activity User E-Sign Co-Sign Detail Recorded Client Recorded Date Recorded By Document 09/30/16 04:09 [id number] 09/30/16 04:10 [id number] 09/30/16 04:09 PMRU Outcome: Neurological Weakness/Aphasia Weakness Right Side Outcome/Goals Maintain/ Achieve Baseline Neurological Status Prevent Avoidable Neurological Decline Demonstrate Knowledge of Prevention/Tx of Neuro Disorders/ Complication Maintain/ Improve Strength/ROM Progression Toward Outcome/Goals Progressing Nutrition/Swallowing- Improve/Maintain Start: 09/26/16 10:56 Freq: DAILY Status: Active Target: Activity Type Activity Date Activity User E-Sign Co-Sign Detail Recorded Client Recorded Date Recorded By Document 09/30/16 04:09 [id number] 09/30/16 04:10 [id number] 09/30/16 04:09 PMRU Outcome: Nutrition/Swallowing Outcome/Goals Demonstrates Adequate Hydration/ Prevents Dehydration Progression Toward Outcome/Goals Progressing Safety- Improve/Maintain Start: 09/26/16 10:56 Freq: DAILY Status: Active Target: Activity Type Activity Date Activity User E-Sign Co-Sign Detail Recorded Client Recorded Date Recorded By Document 09/30/16 04:09 [id number] 09/30/16 04:10 [id number] 09/30/16 04:09 PMRU Outcome: Safety Outcome/Goals Remain Free of Injury or Harm Cooperates with Safety Measures for Least Restrictive Environment Prevent Falls/ Injury Progression Toward Outcome/Goals Progressing Outcome/Goals Met Comment [address], 1 is tamper proof frequent room checks, pt has not set off PA so far this shift Medicine Note: Length of Stay: 9 days Anticipated Discharge Destination: Home Tentative Discharge Date: 10/09/16 Discharged to: Home
[2016-09-30] MEDS: Atorvastatin* 40 MG TAB PO SCH (17:32)
[2016-10-01] MEDS: Levothyroxine TAB* 50 MCG TAB PO SCH (05:28)
[2016-10-01] MEDS: Heparin VIAL(*) 5000 UNITS/ML VIAL (FIVE THOUSAND) SUBCUT SCH ×3 (05:29→21:02)
[2016-10-01] MEDS: Aspirin EC Low Dose* 81 MG TAB.EC PO SCH (08:54)
[2016-10-01] MEDS: Docusate CAP* 100 MG PO SCH ×2 (08:54→21:02)
[2016-10-01] MEDS: Atorvastatin* 40 MG TAB PO SCH (17:14)
[2016-10-02] MEDS: Levothyroxine TAB* 50 MCG TAB PO SCH (05:56)
[2016-10-02] MEDS: Heparin VIAL(*) 5000 UNITS/ML VIAL (FIVE THOUSAND) SUBCUT SCH ×3 (05:57→21:03)
[2016-10-02] MEDS: Aspirin EC Low Dose* 81 MG TAB.EC PO SCH (08:29)
[2016-10-02] MEDS: Docusate CAP* 100 MG PO SCH ×2 (08:29→21:01)
[2016-10-02] MEDS: Magnesium Hydroxide LIQ* 30 ML UDC PO PRN (14:14)
[2016-10-02] MEDS: Atorvastatin* 40 MG TAB PO SCH (16:09)
[2016-10-02] MEDS: Senna TAB PO PRN (21:01)
[2016-10-03] MEDS: Levothyroxine TAB* 50 MCG TAB PO SCH (06:04)
[2016-10-03] MEDS: Heparin VIAL(*) 5000 UNITS/ML VIAL (FIVE THOUSAND) SUBCUT SCH ×3 (06:04→21:41)
[2016-10-03] MEDS: Aspirin EC Low Dose* 81 MG TAB.EC PO SCH (08:11)
[2016-10-03] MEDS: Docusate CAP* 100 MG PO SCH ×2 (08:12→21:41)
[2016-10-03] MEDS: Atorvastatin* 40 MG TAB PO SCH (17:13)
[2016-10-03 18:52] LABS: Urine Bacteria 1+ (Absent); Urine Bilirubin Negative (Negative); Urine Glucose Negative (Negative); Urine Nitrite Positive (Negative)
[2016-10-03] MEDS ORDERED: Levofloxacin TAB* 500 MG PO ONE (21:45)
[2016-10-04] MEDS: Levothyroxine TAB* 50 MCG TAB PO SCH (05:19)
[2016-10-04] MEDS: Heparin VIAL(*) 5000 UNITS/ML VIAL (FIVE THOUSAND) SUBCUT SCH ×3 (05:28→21:41)
[2016-10-04] MEDS: Aspirin EC Low Dose* 81 MG TAB.EC PO SCH (09:48)
[2016-10-04] MEDS: Docusate CAP* 100 MG PO SCH ×2 (09:48→21:41)
[2016-10-04] MEDS: Atorvastatin* 40 MG TAB PO SCH (17:37)
[2016-10-04] MEDS ORDERED: Levofloxacin TAB* 250 MG PO SCH (21:00)
[2016-10-05] MEDS: Levothyroxine TAB* 75 MCG TAB PO SCH (05:49)
[2016-10-05] MEDS: Heparin VIAL(*) 5000 UNITS/ML VIAL (FIVE THOUSAND) SUBCUT SCH ×3 (05:49→21:25)
[2016-10-05] MEDS: Aspirin EC Low Dose* 81 MG TAB.EC PO SCH (09:19)
[2016-10-05] MEDS: Docusate CAP* 100 MG PO SCH ×2 (09:19→21:25)
[2016-10-05] MEDS: Nitrofurantoin Macrocrystals* 50 MG CAP PO SCH ×3 (13:20→21:27)
[2016-10-05] MEDS: Atorvastatin* 40 MG TAB PO SCH (16:43)
[2016-10-06] MEDS: Heparin VIAL(*) 5000 UNITS/ML VIAL (FIVE THOUSAND) SUBCUT SCH ×3 (05:50→21:12)
[2016-10-06] MEDS: Levothyroxine TAB* 75 MCG TAB PO SCH (05:50)
[2016-10-06 06:11] LABS: Hematocrit 40 % (35-47); Hemoglobin 13.8 g/dl (12.0-16.0); Mean Corpuscular HGB Conc 35 g/dl (31-36); Mean Corpuscular Hemoglobin 33 pg (27-31); Mean Corpuscular Volume 95 fL (80-97); Mean Platelet Volume 8 um3 (7.4-10.4); Red Blood Count 4.21 10^6/ul (4.0-5.4); Red Cell Distribution Width 13 % (10.5-15)
[2016-10-06 06:26] LABS: BUN/Creatinine Ratio 25.9 (8-20); Calcium 9.4 mg/dL (8.6-10.3); EGFR African American 91.8 (>60); EGFR Non-African American 71.4 (>60); Globulin 3.6 g/dL (2-4); Potassium 3.8 mmol/L (3.5-5.0); Total Bilirubin 0.7 mg/dL (0.2-1.0); Total Protein 7.6 g/dL (6.4-8.9)
[2016-10-06] MEDS: Aspirin EC Low Dose* 81 MG TAB.EC PO SCH (07:40)
[2016-10-06] MEDS: Docusate CAP* 100 MG PO SCH ×2 (07:40→21:12)
[2016-10-06] MEDS: Nitrofurantoin Macrocrystals* 50 MG CAP PO SCH ×4 (07:41→21:12)
[2016-10-06] MEDS: Atorvastatin* 40 MG TAB PO SCH (17:26)
[2016-10-07] MEDS: Levothyroxine TAB* 75 MCG TAB PO SCH (06:09)
[2016-10-07] MEDS: Heparin VIAL(*) 5000 UNITS/ML VIAL (FIVE THOUSAND) SUBCUT SCH ×3 (06:09→20:46)
[2016-10-07] MEDS: Aspirin EC Low Dose* 81 MG TAB.EC PO SCH (09:41)
[2016-10-07] MEDS: Docusate CAP* 100 MG PO SCH ×2 (09:41→20:46)
[2016-10-07] MEDS: Nitrofurantoin Macrocrystals* 50 MG CAP PO SCH ×4 (09:42→20:46)
--- NOTE | 2016-10-07 12:59 | PMRUTEAM ---
PMRU: Goals Current Status: Nursing: Current Status Skin Deviations [none] Other Skin Deviations [Right Bruise Buttocks] Skin Deviation Description [ none none] Skin Deviation Description [ healing Right Buttocks] Bladder Current Status voiding Bowel Current Status taking bowel meds Nutrition Current Status appetite good Medication Current Status needs reinforcement Physical Therapy: Current Status Bed Mobility Assistance Supervision,Not Tested Transfer Moblility Assistance Supervision,Contact Guard Assist Transfer/Bed Mobility Rolling Walker Recommended Devices Transfer Mobility Comment Pt. very quick and unsteady and unsafe with movements, Impulsive. Ambulation Assistance Contact Guard Assist Ambulation Assistive Devices Rolling Walker Number of Feet Patient 150 Ambulated Ambulation Comment Applied AFO R le. Pt. more in controll of R le Stairs Assistance Contact Guard Assist Stairs Recommended Devices Two Rails Number of Stairs 10 Manual Wheelchair Control/ Bilateral UE's Technique Wheelchair Propulsion Ability Standby Assistance Wheelchair Distance (ft) 150 Occupational Therapy: Current Status Upper Body Dressing Supervision Lower Body Dressing Contact Guard Assist Bathing Contact Guard Assist Bathing Progress CloseS for safety. Toileting Contact Guard Assist Toilet Transfer Contact Guard Assist Shower Transfer Contact Guard Assist Shower Transfer Progress CloseS for safety Eating Supervision Instrumental ADL Pt able to prepare tacos and warm up tacos in the microwave with FWW, CGA, and moderate verbal cues. Rec Therapy: Current Status Summary of Assessment and RT assessment complete, pt. is aware of services Clinical Impression and is open to continued leisure visits. Treatment Goals Pt. will engage in leisure activities while on the unit. Treatment Plan Provide RT services and encourage involvement. Meet with pt. daily to build a rapport. Social Work: Current Status Discharge Plan return home with home care svs and family support Potential for Family Training pt's daughter is scheduled for family training on 10/07 !@ 2pm Anticipated Discharge Home Destination Discharge With home care svs and family support Nutrition: Current Status Monitoring Pt s/p CVA; admitted to [facility] for rehab. Pt generally eating about 50-100% of most meals; occ 5-15%. Pt not in room when approached today; will follow up for diet/wt hx. No new ed needs identified. Last BM 10/03; on appropriate bowel regimen. Goals: Physical Therapy: Initial Goals Bed Mobility Assistance Independent Transfer Mobility Assistance Independent Transfer/Bed Mobility Rolling Walker Recommended Devices Ambulation Independent Ambulation Recommended Devices Rolling Walker Ambulation Distance 150 Stairs Assistance Independent Stair Recommended Devices Two Rails Number of Stairs 12 Physical Therapy: Updated Goals Bed Mobility Assistance Independent Transfer Mobility Assistance Independent Transfer/Bed Mobility Rolling Walker Recommended Devices Ambulation Assistance Independent Ambulation Assistive Devices Rolling Walker Ambulation Distance (ft) 150 Wheelchair Propulsion Ability Independent Wheelchair Distance (ft) 150 Stairs Assistance Independent Stairs Recommended Devices Two Rails Number of Stairs 12 Home Exercise Program Supervision Assistance Occupational Therapy: Initial Goals Goals to be Completed in (Days 7-9 ) Upper Body Bathing Routine Independent Lower Body Bathing Routine Modified Independent with Upper Body Dressing Routine Independent Lower Body Dressing Routine Modified Independent with Toilet Hygeine and Clothing Modified Independent with Management Routine Toilet Transfer Routine Modified Independent with Step-In Shower Transfer Modified Independent with Routine Functional Transfers for ADL Modified Independent with Grooming Routine Independent Feeding Routine Independent Nursing: Goals Bladder Goal independent Bowel Goal independent Nutrition Goal 100% of all meals Medication Goal supervision Nutrition: Goals Intervention Goals 1. Intake will be adequate to maintain UBW 2. Pt will establish regular bowel pattern without constipation/diarrhea Speech: Goals Goal 1 Comments N/A evaluation only. Social Work: Goals Discharge Plan return home with home care svs and family support Potential for Family Training pt's daughter is scheduled for family training on 10/07 !@ 2pm Anticipated Discharge Home Destination Discharge With home care svs and family support Care Plan: Care Plan ADL's - Improve/Maintain Start: 09/26/16 10:56 Freq: DAILY Status: Active Target: Activity Type Activity Date Activity User E-Sign Co-Sign Detail Recorded Client Recorded Date Recorded By Document 10/06/16 15:02 [id number] [id number] 10/06/16 15:03 [id number] 10/06/16 15:02 PMRU Outcome: ADL's/ADL Transfers Orders/Interventions Occupational Therapy Evaluation & Treatment Communication Tool in Patient Room Device Yes Patient to receive OT 5x/wk for 60-120 Therex min/day Self Care Management Group Therapy UE/LE ADL's with Assist Yes: Mod I ADL Transfers with Assist Yes: Mod I Toileting: Transfers,Clothing Management Yes: Mod I ,Hygeine w/Assist Progression Toward Outcome/Goals Progressing Outcome/Goals Met Pt progressing towards goals. Pt required increased cueing when performing self -care tasks and during bathing routine today. Continue to encourage self- care management and independence in self-care routine. Communication-Improve/Maintain Start: 09/26/16 10:56 Freq: DAILY Status: Active Target: Activity Type Activity Date Activity User E-Sign Co-Sign Detail Recorded Client Recorded Date Recorded By Document 10/07/16 06:15 [id number] 10/07/16 06:15 [id number] 10/07/16 06:15 PMRU Outcome: Communication/Cognitive Status Outcome/Goals Makes Needs Known Effectively Progression Toward Outcomes/Goals Progressing DVT Prophylaxis- Improve/Maintain Start: 09/26/16 10:56 Freq: DAILY Status: Active Target: Activity Type Activity Date Activity User E-Sign Co-Sign Detail Recorded Client Recorded Date Recorded By Document 10/07/16 06:15 [id number] 10/07/16 06:15 [id number] 10/07/16 06:15 PMRU Outcome: DVT Prophylaxis Outcome/Goals Remains Free of DVT Complies with DVT Prophylaxis /Treatment TEDS Stockings on Every AM, Off at HS Progression Toward Outcome/Goals Progressing Discharge Planning - Improve/Maintain Start: 09/26/16 10:56 Freq: DAILY Status: Active Target: Activity Type Activity Date Activity User E-Sign Co-Sign Detail Recorded Client Recorded Date Recorded By Document 10/07/16 06:15 [id number] 10/07/16 06:15 [id number] 10/07/16 06:15 PMRU Outcome: Discharge Planning Identify Patient Needs yes Update Patient Family No Outcome/Goals Demonstrates Understanding of Discharge Plan Progression Toward Outcome/Goals Progressing Education-Improve/Maintain Start: 09/26/16 10:56 Freq: DAILY Status: Active Target: Activity Type Activity Date Activity User E-Sign Co-Sign Detail Recorded Client Recorded Date Recorded By Document 10/07/16 06:15 [id number] 10/07/16 06:15 [id number] 10/07/16 06:15 PMRU Outcome: Education Outcome/Goals Demonstrate/ Verbalize Understanding of Written Discharge Instructions Demonstrates Skills Encourage Questions Progression Toward Outcome/Goals Progressing Medication Administration Start: 09/26/16 10:56 Freq: DAILY Status: Active Target: Activity Type Activity Date Activity User E-Sign Co-Sign Detail Recorded Client Recorded Date Recorded By Document 10/07/16 06:15 [id number] 10/07/16 06:15 [id number] 10/07/16 06:15 PMRU Outcome: Medication Administration Assess Patient Knowledge/Teach Med No Education for all Meds Outcome/Goals Family/ Caregiver Administer Medications at Home Demonstrates Understanding Progression Towards Outcome/Goals Progressing Is Patient Going Home on Lovenox? No Mobility- Improve/Maintain Start: 09/26/16 10:56 Freq: DAILY Status: Active Target: Activity Type Activity Date Activity User E-Sign Co-Sign Detail Recorded Client Recorded Date Recorded By Document 10/06/16 12:37 [id number] [id number] 10/06/16 12:37 [id number] 10/06/16 12:37 PMRU Outcome: Mobility Physical Therapy Evaluation and Yes Treatment Activity OOB with Assistance Yes Device Yes Assistance Yes Patient to be seen 5x/wk for 60-120 min/ Therex day for: Mobility Training Gait Training Balance Outcome/Goals Maintain/ Achieve Baseline Mobility Status Improve Mobility Status Demonstrates Proper Use of Assistive Devices Free from Complications of Immobility Progression Toward Outcome/Goals Progressing Bed Mobility Yes: independent Transfers Yes: independent with rolling walker Gait x ft Yes: independent 150 ' with RW Up/Down Stairs Yes: independet up/down 12 stairs with Bilateral rails Neurological- Improve/Maintain Start: 09/26/16 10:56 Freq: DAILY Status: Active Target: Activity Type Activity Date Activity User E-Sign Co-Sign Detail Recorded Client Recorded Date Recorded By Document 10/07/16 06:15 [id number] [id number] 10/07/16 06:15 [id number] 10/07/16 06:15 PMRU Outcome: Neurological Weakness/Aphasia Weakness Right Side Outcome/Goals Maintain/ Achieve Baseline Neurological Status Improve Neurological Status Prevent Avoidable Neurological Decline Demonstrate Knowledge of Prevention/Tx of Neuro Disorders/ Complication Maintain/ Improve Strength/ROM Progression Toward Outcome/Goals Progressing Nutrition/Swallowing- Improve/Maintain Start: 09/26/16 10:56 Freq: DAILY Status: Active Target: Activity Type Activity Date Activity User E-Sign Co-Sign Detail Recorded Client Recorded Date Recorded By Document 10/07/16 06:15 [id number] 10/07/16 06:15 [id number] 10/07/16 06:15 PMRU Outcome: Nutrition/Swallowing Outcome/Goals Demonstrates Adequate Hydration/ Prevents Dehydration Progression Toward Outcome/Goals Progressing Safety- Improve/Maintain Start: 09/26/16 10:56 Freq: DAILY Status: Active Target: Activity Type Activity Date Activity User E-Sign Co-Sign Detail Recorded Client Recorded Date Recorded By Document 10/07/16 06:15 [id number] [email or web address] 10/07/16 06:15 [id number] 10/07/16 06:15 PMRU Outcome: Safety Outcome/Goals Remain Free of Injury or Harm Cooperates with Safety Measures for Least Restrictive Environment Prevent Falls/ Injury Other Outcome/Goals patient unsteady when transferring or ambulating Progression Toward Outcome/Goals Progressing Outcome/Goals Met Comment [address], 1 is tamper proof patient in hallway when not in therapies Medicine Note: Length of Stay: 2-3 days Anticipated Discharge Destination: Home Tentative Discharge Date: 10/09/16 Discharged to: [facility]
[2016-10-07] MEDS: Atorvastatin* 40 MG TAB PO SCH (17:10)
[2016-10-07] MEDS: Senna TAB PO PRN (20:46)
[2016-10-07] MEDS: Magnesium Hydroxide LIQ* 30 ML UDC PO PRN (20:46)
[2016-10-08] MEDS: Levothyroxine TAB* 75 MCG TAB PO SCH (05:46)
[2016-10-08] MEDS: Heparin VIAL(*) 5000 UNITS/ML VIAL (FIVE THOUSAND) SUBCUT SCH ×3 (05:46→20:40)
[2016-10-08] MEDS: Docusate CAP* 100 MG PO SCH ×2 (08:26→20:40)
[2016-10-08] MEDS: Nitrofurantoin Macrocrystals* 50 MG CAP PO SCH ×4 (08:26→20:41)
[2016-10-08] MEDS: Aspirin EC Low Dose* 81 MG TAB.EC PO SCH (08:26)
[2016-10-08] MEDS: Atorvastatin* 40 MG TAB PO SCH (17:23)
[2016-10-09] MEDS: Levothyroxine TAB* 75 MCG TAB PO SCH (05:55)
[2016-10-09] MEDS: Heparin VIAL(*) 5000 UNITS/ML VIAL (FIVE THOUSAND) SUBCUT SCH ×3 (05:55→20:58)
[2016-10-09] MEDS: Docusate CAP* 100 MG PO SCH ×2 (09:09→20:58)
[2016-10-09] MEDS: Nitrofurantoin Macrocrystals* 50 MG CAP PO SCH ×4 (09:09→20:58)
[2016-10-09] MEDS: Aspirin EC Low Dose* 81 MG TAB.EC PO SCH (09:09)
[2016-10-09 16:19] VITALS: BP 115/74
[2016-10-09] MEDS: Atorvastatin* 40 MG TAB PO SCH (16:42)
[2016-10-10] MEDS: Levothyroxine TAB* 75 MCG TAB PO SCH (05:59)
[2016-10-10] MEDS: Heparin VIAL(*) 5000 UNITS/ML VIAL (FIVE THOUSAND) SUBCUT SCH (05:59)
[2016-10-10] MEDS: Nitrofurantoin Macrocrystals* 50 MG CAP PO SCH ×2 (08:47→12:16)
[2016-10-10] MEDS: Docusate CAP* 100 MG PO SCH (08:48)
[2016-10-10] MEDS: Aspirin EC Low Dose* 81 MG TAB.EC PO SCH (08:48)
--- NOTE | 2016-10-10 12:30 | TRS ---
TRANSFER SUMMARY: DATE OF ADMISSION: 09/26/16 DATE OF TRANSFER: 10/10/16 PRIMARY CARE DOCTOR: Dr. Caldwell. DISCHARGE DIAGNOSES: 1. Cerebrovascular accident with right hemiparesis. 2. Hypothyroidism. 3. Nicotine addiction. 4. Urinary tract infection. HISTORY OF PRESENT ILLNESS AND HOSPITAL COURSE: For complete history of the events leading up to her rehab stay, please see the history and physical dictated by me on 09/26/16. While on the rehab unit, the patient was largely medically stable. She was having issues with incontinence, so a urinalysis was sent. The urine grew out E. coli and she was put on Macrodantin. She received a full course of oral Macrodantin. The patient was otherwise medically stable. She was maintained on aspirin for secondary stroke prevention. The patient was seen by Physical Therapy and Occupational Therapy and made fair gains with both disciplines. With physical therapy at the time of admission, the patient required moderate amount of assistance to transfer. She was able to ambulate 80 feet with moderate amount of assistance. She was noted to have a very ataxic gait. With occupational therapy at the time of admission, the patient required min-assist for lower body dressing, min-assist for grooming, contact guard for toilet transfers, min-assist for toileting. By the time of discharge , the patient still was requiring contact guard for transfers and contact guard for ambulation. Her balance still deteriorates the further she walks making her a fall risk. As the patient would be home alone and was impulsive and could not be trusted to stay in a wheelchair while alone, it was decided that the patient should go to a subacute rehab and get ongoing rehabilitation on a slightly slower scale that she might return to independent living. The patient is being transferred to [facility] to undergo subacute rehabilitation. DIET: The patient's discharge diet is regular. DISCHARGE MEDICATIONS: 1. Aspirin 81 mg daily. 2. Lipitor 40 mg daily. 3. Synthroid 75 mcg daily. 4. Senokot 2 tabs at bedtime as needed. 5. Colace 100 mg twice daily. 6. Tylenol 650 mg every 6 hours as needed. SERVICES AFTER DISCHARGE: She should have restorative physical therapy, occupational therapy, and speech therapy followup. The patient can follow up with Dr. Lavelle Hoyt in 6 weeks for stroke followup. CC: Dr. Caldwell* [id number]/[facility] #: [id number] EMILIANO
== END 2016-10-10 14:50 | DRG 57 ==
LOC: PMRU 09:29
PROVIDERS: ADMIT Physical Medicine & Rehabilitation; ATTEND Physical Medicine & Rehabilitation
PROC: F07Z5ZZ Bed Mobility Treatment (ICD-10-PCS; principal; 2016-09-26)
PROC: F07Z9ZZ Gait Training/Functional Ambulation Treatment (ICD-10-PCS; 2016-09-26)
PROC: F07Z8ZZ Transfer Training Treatment (ICD-10-PCS; 2016-09-26)
PROC: F08Z0ZZ Bathing/Showering Techniques Treatment (ICD-10-PCS; 2016-09-26)
PROC: F08Z1ZZ Dressing Techniques Treatment (ICD-10-PCS; 2016-09-26)
PROC: F08Z3ZZ Feeding/Eating Treatment (ICD-10-PCS; 2016-09-26)
DX: I69.351 Hemiplegia and hemiparesis following cerebral infarction affecting right dominant side (principal); Q21.1 Atrial septal defect; I10 Essential (primary) hypertension; N39.0 Urinary tract infection, site not specified; E03.9 Hypothyroidism, unspecified; B96.20 Unspecified Escherichia coli [E. coli] as the cause of diseases classified elsewhere; F17.210 Nicotine dependence, cigarettes, uncomplicated; I65.21 Occlusion and stenosis of right carotid artery; Z79.899 Other long term (current) drug therapy
CPT/HCPCS: 36415; 80053; 81003; 81015; 84443; 85025; 87077; 87086; 87186; A9270-GY; J1644

== ENCOUNTER 2017-03-17 18:30 | Emergency (ER) | payer MEDICARE, MEDICAID ==
[2017-03-17 18:48] VITALS: BP 167/94
[2017-03-17] MEDS ORDERED: HYDROcodone/ACETAMIN 5-325 MG* 1 TAB PO ONE ×2 (20:49→22:41)
--- NOTE | 2017-03-17 21:33 | RAD ---
INDICATION: Intracranial injury COMPARISON: CT brain September 23, 2016 TECHNIQUE: Noncontrast axial source images were acquired from the skull base to the vertex. FINDINGS: Ventricles/sulci: There is cortical atrophy with compensatory dilatation of the CSF spaces. Brain parenchyma: There is periventricular and subcortical white matter change compatible with chronic ischemia. Intracranial hemorrhage:None. Extra-axial spaces: There are no abnormal extra axial fluid collections or evidence of extra-axial mass. Calvarium: There is no calvarial fracture or other calvarial abnormality. Scalp: There is no evidence of scalp or extracalvarial soft tissue abnormality. Paranasal sinuses/mastoid: The paranasal sinuses and mastoid air cells are clear. Other: None. IMPRESSION: CORTICAL ATROPHY WITH CHRONIC MICROVASCULAR ISCHEMIC CHANGES. NO ACUTE FINDINGS.
--- NOTE | 2017-03-17 21:39 | RAD ---
INDICATION: Fall. Neck pain. COMPARISON: CT cervical spine September 23, 2016 TECHNIQUE: Noncontrast axial source images was performed from the skull base to the thoracic inlet. Coronal and and sagittal reformatted images were generated. Examination is limited due to motion artifact. FINDINGS: Vertebrae: No acute fractures seen although it is noted above there are limitations due to motion artifact. There is spurring at C4-C6 with moderate disc space narrowing C5-C6. Similar findings were present previously.. Alignment: The craniocervical junction appears normal. The cervical vertebrae are normally aligned. Central Canal: There are no significant CT abnormalities of the central canal or foramina. MR imaging is a more sensitive method to evaluate the canal and foramina. Intervertebral disc spaces: The remaining disc spaces are maintained. Brain: The visualized brain appears unremarkable. Soft tissues: The visualized soft tissue elements of the neck are remarkable for bilateral carotid arterial calcifications. . This is been described previously. The prevertebral soft tissues appear normal. The lung apices are clear. IMPRESSION: MILD LIMITATIONS DUE TO MOTION ARTIFACT. DEGENERATIVE CHANGES AT C5-C6 PREVIOUSLY DESCRIBED. NO ACUTE FINDINGS.
--- NOTE | 2017-03-17 22:01 | RAD ---
INDICATION: Traumatic fracture right shoulder COMPARISON: None TECHNIQUE: AP, lateral, and oblique views were obtained. FINDINGS: There is a comminuted fracture of the humeral head and neck with impaction and lateral displacement of the humeral shaft one half bone width. There are no other fractures. The AC joint is intact. There is mild atelectasis in the right lung base. IMPRESSION: PROXIMAL HUMERAL FRACTURE DESCRIBED.
--- NOTE | 2017-03-17 22:27 | ED ---
Upper Extremity Pain - HPI Summary HPI Summary: Pt here w/ fall prior to arrival. Was walking through a doorway when she lost her footing and fell backwards. Has Rt shoulder pain. Unsure of head injury but denies PRUETT, LOC, neck pain, visual change, N/V, numbness, tingling. Rt arm is weak and shoulder is swollen/painful. Feels better rested - worse w/ movement. Has not taken anything prior to arrival - comes with daughter who was taking her out of [facility] for a home visit when she fell. Pt has baseline balance issues from residual paresthesia d/t CVA - takes daily ASA 81mg. 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 - Allergies/Home Medications Allergies/Adverse Reactions: Allergies Allergy/AdvReac Type Severity Reaction Status Date / Time No Known Allergies Allergy Verified 09/23/16 08:34 PMH/Surg Hx/FS Hx/Imm Hx Previously Healthy: Yes Endocrine/Hematology History: Reports: Hx Thyroid Disease Denies: Hx Anticoagulant Therapy - ASA 81mg daily, Hx Blood Disorders Cardiovascular History: Reports: Other Cardiovascular Problems/Disorders - carotid stenosis Denies: Hx Pacemaker/ICD Musculoskeletal History: Reports: Hx Arthritis, Other Musculoskeletal History - DDD Sensory History: Denies: Hx Contacts or Glasses, Hx Hearing Aid Opthamlomology History: Denies: Hx Contacts or Glasses Psychiatric History: Reports: Hx Schizophrenia - possible, Other Psychiatric Issues/Disorders - schizoaffective disorder Denies: Hx Panic Disorder - Surgical History Surgery Procedure, Year, and Place: C-SECT, appy Infectious Disease History: No Infectious Disease History: Reports: Hx Hepatitis - C Denies: Traveled Outside the [place] in Last 30 Days - Family History Known Family History: Positive: Diabetes - Mother - Social History Occupation: Disabled Lives: Assisted Living - [facility] Alcohol Use: None Hx Substance Use: No Substance Use Type: Reports: None Hx Tobacco Use: Yes - not currently Smoking Status (MU): Former Smoker Review of Systems Constitutional: Negative Negative: Fatigue Eyes: Negative Negative: Photophobia, Blurred Vision, Diplopia ENT: Negative Negative: Dental Pain Cardiovascular: Negative Negative: Chest Pain Respiratory: Negative Negative: Shortness Of Breath Gastrointestinal: Negative Negative: Abdominal Pain, Vomiting, Diarrhea, Nausea Positive: no symptoms reported. Negative: incontinence Musculoskeletal: Other - see HPI- denies neck pain, back pain, rib pain, LE pain Skin: Negative Neurological: Negative Negative: Headache, Weakness, Paresthesia, Numbness, Syncope, Slurred Speech Psychological: Normal All Other Systems Reviewed And Are Negative: Yes Physical Exam Triage Information Reviewed: Yes Vital Signs On Initial Exam: Initial Vitals Temp Pulse Resp BP Pulse Ox 98.1 F 78 20 167/94 99 03/17/17 18:45 03/17/17 18:45 03/17/17 18:45 03/17/17 18:45 03/17/17 18:45 Vital Signs Reviewed: Yes Appearance: Positive: Well-Appearing, No Pain Distress - at rest but has a blunted affect - reports pain upon inquiry, Well-Nourished Skin: Positive: Warm, Dry - no erythema, no ecchymosis over Rt shoulder Head/Face: Positive: Normal Head/Face Inspection Eyes: Positive: Normal, EOMI, GERA, Conjunctiva Clear ENT: Positive: Hearing grossly normal, Pharynx normal, TMs normal - no hemotympanum. Negative: Nasal drainage Dental: Negative: Dental Fracture @ Neck: Positive: Supple, Nontender Respiratory/Lung Sounds: Positive: Breath Sounds Present. Negative: Subcutaneous Emphysema, Stridor, Tracheal Deviation Cardiovascular: Positive: Normal, Pulses are Symmetrical in both Upper and Lower Extremities Abdomen Description: Positive: Nontender, Soft Musculoskeletal: Positive: Strength/ROM Intact - EXCEPT w/ Rt shoulder and elbow movements, Pain @ - Rt shoulder - edematous compared to Lt; distal humerus and elbow are NTTP Neurological: Positive: Normal, Sensory/Motor Intact - EXCEPT movement of Rt shoulder, Alert, Oriented to Person Place, Time, CN Intact II-III Psychiatric: Positive: Other - blunted affected - [place] Coma Scale Coma Scale Total: 15 Diagnostics - Vital Signs Vital Signs Temp Pulse Resp BP Pulse Ox 03/17/17 18:45 98.1 F 78 20 167/94 99 - Laboratory Diagnostic Studies Comment: Rt shoulder XR reveals comminuted, laterally displaced distal humeral fx. Image and report reviewed - agree. CT brain and cervical spine are w/o acute pathology per report. Spoke w/ Dr. Isaac - sling, rest, ice, pain control and f/u w/ ortho -will most likely require surgical repair. Lab Statement: Any lab studies that have been ordered have been reviewed, and results considered in the medical decision making process. Re-Evaluation - Re-Evaluation First Eval Change: Improved Course/Dx - Course Course Of Treatment: Discussed w/ pt and family. They are aware of danger s/sx and agree w/ plan. See notes and d/c for details. - Diagnoses Provider Diagnoses: Closed traumatic displaced fracture of proximal end of right humerus Discharge - Discharge Plan Condition: Stable Disposition: HOME Prescriptions: HYDROcodone/ACETAMIN 5-325 MG* [[place] 5-325 TAB*] 1 tab PO Q6H PRN #20 tab MDD 4 PRN Reason: Pain Ibuprofen TAB* [Motrin TAB* 600 MG] 600 mg PO Q6H PRN #20 tab PRN Reason: Pain Patient Education Materials: Proximal Humerus Fracture (ED) Referrals: Carolina Isaac MD [Medical Doctor] - Additional Instructions: Rest - Keep are in sling and supported when sleeping, sitting, etc. Ice You may take ibuprofen alternating with norco as needed for pain Follow-up with orthopedics - call tomorrow to schedule appointment. *If you develop swelling, numbness, tingling, coolness, return to ED
[2017-03-17] MEDS ORDERED: Ibuprofen TAB* 800 MG PO ONE (22:41)
== END 2017-03-17 23:03 | disposition home or self-care (01) ==
LOC: ED 18:30
DX: S42.201A Unspecified fracture of upper end of right humerus, initial encounter for closed fracture (principal); W19.XXXA Unspecified fall, initial encounter; Y93.9 Activity, unspecified; Y92.9 Unspecified place or not applicable; Y99.9 Unspecified external cause status
CPT/HCPCS: 70450; 72125; 99282; A9270-GY

== ENCOUNTER 2017-03-18 08:25 | Emergency (ER) | payer MEDICARE, MEDICAID ==
--- NOTE | 2017-03-18 09:27 | RAD ---
INDICATION: Near syncope one day after a fall COMPARISON: Most recent comparison CT is dated March 17, 2017 and September 23, 2016 prior to that. TECHNIQUE: Contiguous axial sections of the brain were obtained from the skull base to the vertex without contrast. FINDINGS: The ventricles, cisterns and sulci stable symmetrical involutional changes. Again seen is a focal hypodensity in posterior left basal ganglia unchanged from the [address] examinations possibly representing a lacunar infarction. There is periventricular and subcortical white matter hypoattenuation most consistent with chronic microvascular disease. The ames-white matter differentiation is adequately maintained and there is no sulcal effacement. No significant focal abnormality or mass effect is present. There is no evidence for intracranial hemorrhage. No significant focal osseous abnormality is present. The visualized portion of the paranasal sinuses and mastoid air cells appear clear. IMPRESSION: Chronic findings as described above not significantly changed from the [address] examinations without acute intracranial abnormality.
--- NOTE | 2017-03-18 09:28 | RAD ---
HISTORY: Syncope COMPARISONS: None VIEWS: 4: Frontal dual-energy and lateral views of the chest. FINDINGS: CARDIOMEDIASTINAL SILHOUETTE: The cardiomediastinal silhouette is normal. ALMA: The alma are normal. PLEURA: The costophrenic angles are sharp. No pleural abnormalities are noted. LUNG PARENCHYMA: The lungs are clear. ABDOMEN: The upper abdomen is clear. There is no subphrenic gas. BONES AND SOFT TISSUES: No bone or soft tissue abnormalities are noted. OTHER: None. IMPRESSION: NO ACTIVE CARDIOPULMONARY DISEASE.
[2017-03-18 09:32] LABS: Albumin 4.2 g/dL (3.2-5.2); BUN/Creatinine Ratio 23.4 (8-20); Calcium 9.6 mg/dL (8.6-10.3); EGFR African American 97.1 (>60); EGFR Non-African American 75.5 (>60); Globulin 3.4 g/dL (2-4); Magnesium 2.2 mg/dL (1.9-2.7); Potassium 3.8 mmol/L (3.5-5.0); Total Bilirubin 0.5 mg/dL (0.2-1.0); Total Protein 7.6 g/dL (6.4-8.9)
[2017-03-18 10:02] LABS: TSH (Thyroid Stimulating Horm) 24.3 mcIU/mL (0.34-5.60)
[2017-03-18] MEDS ORDERED: NS 0.9% 1000 ML* 1,000 ML IV ONE (12:04)
[2017-03-18 13:25] VITALS: BP 115/90
--- NOTE | 2017-03-19 16:22 | ED ---
Robert Quiñones Angela, scribed for Christopher Stone MD on 03/18/17 at 0838 . Syncope/Near Syncope - HPI Summary HPI Summary: This pt is a 62 y/o female presenting to [facility] c/o near syncope today. Pt lives in [facility] but is staying at her daughter's house since yesterday after sustaining a broken right humerus. Per nurse, pt went to the bathroom this morning and had a near syncopal episode that lasted approximately 1 minutes. Per nurse, pt was not having a bowel movement or straining. Pt states she was urinating and does not remember passing out. She notes she was sitting on a toilet when her daughter got her out of the bathroom. Pt denies feeling chest pain, SOB, or palpitations. Currently pt reports feeling "achy." Per nurse, the pt last dose of pain medication was last night. Pt was seen in the ED yesterday after she fell yesterday due to losing her balance and sustained a fractured right humerus. Pt was discharged to her daughter's home with pain medications. - History Of Current Complaint Chief Complaint: EDSyncope Time Seen by Provider: 03/18/17 08:28 Hx Obtained From: Patient, Other: - nurse Onset/Duration: Sudden Onset, Resolved Timing: Minutes - 1 Context: Witnessed - daughter Associated Head Trauma: No Aggravating Factor(s): Nothing Alleviating Factor(s): Nothing - Allergies/Home Medications Allergies/Adverse Reactions: Allergies Allergy/AdvReac Type Severity Reaction Status Date / Time No Known Allergies Allergy Verified 09/23/16 08:34 PMH/Surg Hx/FS Hx/Imm Hx Endocrine/Hematology History: Reports: Hx Thyroid Disease Denies: Hx Anticoagulant Therapy - ASA 81mg daily, Hx Blood Disorders Cardiovascular History: Reports: Other Cardiovascular Problems/Disorders - carotid stenosis Denies: Hx Pacemaker/ICD Musculoskeletal History: Reports: Hx Arthritis, Other Musculoskeletal History - DDD Sensory History: Denies: Hx Contacts or Glasses, Hx Hearing Aid Opthamlomology History: Denies: Hx Contacts or Glasses Neurological History: Reports: Hx CVA Psychiatric History: Reports: Hx Schizophrenia - possible, Other Psychiatric Issues/Disorders - schizoaffective disorder Denies: Hx Panic Disorder - Surgical History Surgery Procedure, Year, and Place: C-SECT, appy Infectious Disease History: No Infectious Disease History: Reports: Hx Hepatitis - C Denies: Traveled Outside the [place] in Last 30 Days - Family History Known Family History: Positive: Diabetes - Mother - Social History Alcohol Use: None Hx Substance Use: No Substance Use Type: Reports: None Hx Tobacco Use: Yes - not currently Smoking Status (MU): Former Smoker Review of Systems Negative: Fever, Chills Negative: Palpitations, Chest Pain Negative: Shortness Of Breath Positive: Other - right arm pain Neurological: Other - near syncope All Other Systems Reviewed And Are Negative: Yes Physical Exam - Summary Physical Exam Summary: VITAL SIGNS: Reviewed. GENERAL: Patient is a well-developed and nourished female who is lying comfortable in the stretcher. Patient is not in any acute respiratory distress. HEAD AND FACE: No signs of trauma. No ecchymosis, hematomas or skull depressions. No sinus tenderness. EYES: PERRLA, EOMI x 2, No injected conjunctiva, no nystagmus. EARS: Hearing grossly intact. Ear canals and tympanic membranes are within normal limits. MOUTH: Oropharynx within normal limits. NECK: Supple, trachea is midline, no adenopathy, no JVD, no carotid bruit, no c- spine tenderness, neck with full ROM. CHEST: Symmetric, no tenderness at palpation LUNGS: Clear to auscultation bilaterally. No wheezing or crackles. CVS: Regular rate and rhythm, S1 and S2 present, no murmurs or gallops appreciated. ABDOMEN: Soft, non-tender. No signs of distention. No rebound no guarding, and no masses palpated. Bowel sounds are normal. EXTREMITIES: no edema, no cyanosis or clubbing. Pt has decreased ROM of right arm secondary to pain. NEURO: Alert and oriented x 3. No acute neurological deficits. Speech is normal and follows commands. SKIN: Dry and warm GCS: 15 Triage Information Reviewed: Yes Vital Signs On Initial Exam: Initial Vitals Temp Pulse Resp BP Pulse Ox 96.8 F 79 18 154/94 95 03/18/17 08:26 03/18/17 08:26 03/18/17 08:26 03/18/17 08:26 03/18/17 08:26 Vital Signs Reviewed: Yes Diagnostics - Vital Signs Vital Signs Temp Pulse Resp BP Pulse Ox 03/18/17 08:26 96.8 F 79 18 154/94 95 - Laboratory Lab Results: Lab Results 03/18/17 03/18/17 Range/Units 09:01 09:01 Sodium 137 (133-145) mmol/L Potassium 3.8 (3.5-5.0) mmol/L Chloride 103 (101-111) mmol/L Carbon Dioxide 26 (22-32) mmol/L Anion Gap 8 (2-11) mmol/L BUN 18 (6-24) mg/dL Creatinine 0.77 (0.51-0.95) mg/dL Est GFR ( Amer) 97.1 (>60) Est GFR (Non-Af Amer) 75.5 (>60) BUN/Creatinine Ratio 23.4 H (8-20) Glucose 133 H (70-100) mg/dL Calcium 9.6 (8.6-10.3) mg/dL Magnesium 2.2 (1.9-2.7) mg/dL Total Bilirubin 0.50 (0.2-1.0) mg/dL AST 20 (13-39) U/L ALT 22 (7-52) U/L Alkaline Phosphatase 62 (34-104) U/L Troponin I 0.00 (<0.04) ng/mL B-Natriuretic Peptide 19 ( - 100) pg/mL Total Protein 7.6 (6.4-8.9) g/dL Albumin 4.2 (3.2-5.2) g/dL Globulin 3.4 (2-4) g/dL Albumin/Globulin Ratio 1.2 (1-3) TSH 24.30 H (0.34-5.60) mcIU/mL Result Diagrams: 03/18/17 09:01 Lab Statement: Any lab studies that have been ordered have been reviewed, and results considered in the medical decision making process. - Radiology Chest XR Xray Interpretation: No Acute Changes - IMPRESSION: No active cardiopulmonary disease. ED physician has reviewed this radiology report and agrees. Radiology Interpretation Completed By: Radiologist - CT brain CT CT Interpretation: No Acute Changes - IMPRESSION: Chronic findings as described above not significantly changed from the 2 prior examinations without acute intracranial abnormality. ED physician has reviewed this radiology report and agrees. CT Interpretation Completed By: Radiologist - EKG 0922 Cardiac Rate: NL - 82 bpm EKG Rhythm: Sinus Rhythm EKG Interpretation: No ST elevation Course/Dx Assessment/Plan: This pt is a 62 y/o female presenting to [facility] c/o near syncope today. Pt lives in [facility] but is staying at her daughter's house since yesterday after sustaining a broken right humerus. Per nurse, pt went to the bathroom this morning and had a near syncopal episode that lasted approximately 1 minutes. Per nurse, pt was not having a bowel movement or straining. Pt states she was urinating and does not remember passing out. She notes she was sitting on a toilet when her daughter got her out of the bathroom. Pt denies feeling chest pain, SOB, or palpitations. Currently pt reports feeling "achy." Per nurse, the pt last dose of pain medication was last night. Pt was seen in the ED yesterday after she fell yesterday due to losing her balance and sustained a fractured right humerus. Pt was discharged to her daughter's home with pain medications. Test results without any significant abnormalities except for TSH of 24.3. Chest XR shows no active cardiopulmonary disease. Head CT reveals chronic findings as described above not significantly changed from the 2 prior examinations without acute intracranial abnormality. The pt was hydrated and after this the pt is feeling better. Pt is ambulating in the ER wo dizziness or difficulty ambulating. CBC was not done but patient does not want to wait for the CBC. Patient and daughter reports that they have an apoitment with orthopedics. The pt reports she has an appointment to see orthopedics today at 1:30 PM and wants to be discharged home. The pts care connector will be taking the pt to the appointment. I believe she had a vasovagal syncope or vasovagal fainting possibly secondary to dehydration. After hydration, the pt is better and will be under the care of her daughter. She will be discharged home with follow up from her PCP for better control of her hypothyroidism. She was recommended to take the medications as indicated. Pt is hemodynamically stable, alert and oriented x3. - Diagnoses Differential Diagnosis/HQI/PQRI: Positive: Cerebral Vascular Accident, Seizure, Transient Ischemic Attack, Vasovagal Episode Provider Diagnoses: Near syncope, Vasovagal near syncope, Hypothyroidism Discharge - Discharge Plan Condition: Stable Disposition: HOME Patient Education Materials: Near Syncope (ED) Referrals: Cleveland Caldwell MD [Primary Care Provider] - Additional Instructions: Please follow up with your primary care provider. RETURN TO THE ED FOR ANY WORSENING SYMPTOMS. The documentation as recorded by the Robert hudson Angela accurately reflects the service I personally performed and the decisions made by me, Christopher Stone MD.
== END 2017-03-18 13:25 | disposition home or self-care (01) ==
LOC: ED 08:25
DX: R55 Syncope and collapse (principal); E03.9 Hypothyroidism, unspecified; Z87.891 Personal history of nicotine dependence; M79.601 Pain in right arm
CPT/HCPCS: 36415; 70450; 71020; 80053; 83735; 83880; 84443; 84484; 93005; 99283